=== PATIENT | female | born 1975 | race African-American/Black ===

== ENCOUNTER 2019-03-14 12:01 | Emergency (ER) | payer OTHER ==
[~2019-03-14] VITALS: Ht 175.3 cm; Wt 88.6 kg
[2019-03-14] MEDS ORDERED: INSU100V37 SQ (12:15)
[2019-03-14] MEDS ORDERED: INSULIN NOVOLOG SQ (12:15)
[2019-03-14] MEDS ORDERED: PREG75 PO (12:15)
[2019-03-14 12:16] LABS: GLUCOSE,POINT OF CARE 367 MG/DL (70-110)
[2019-03-14] MEDS ORDERED: INSNOV SQ (12:17)
[2019-03-14] MEDS ORDERED: KETOROLAC TROMETHAMINE 30 MG/ML VIAL IM ONE (12:30)
[2019-03-14 13:10] VITALS: BP 138/81
== END 2019-03-14 13:24 | disposition home or self-care (01) ==
LOC: EMS 12:02
DX: S16.1XXA Strain of muscle, fascia and tendon at neck level, initial encounter (principal); E11.9 Type 2 diabetes mellitus without complications; Z88.1 Allergy status to other antibiotic agents; Z88.8 Allergy status to other drugs, medicaments and biological substances; Z79.4 Long term (current) use of insulin; V49.9XXA Car occupant (driver) (passenger) injured in unspecified traffic accident, initial encounter; Y93.89 Activity, other specified; Y92.89 Other specified places as the place of occurrence of the external cause; Y99.8 Other external cause status
CPT/HCPCS: 82962; 96372; 99283; J1885

== ENCOUNTER 2019-06-13 10:16 | Inpatient (IN) | payer OTHER ==
[~2019-06-13] VITALS: Ht 175.3 cm; Wt 98.6 kg
[~2019-06-13 10:16] MED LIST: INSNOV SQ; INSU100V37 SQ; PREG75 PO
[2019-06-13] MEDS ORDERED: ANTIBIOTIC IVPB (10:24)
[2019-06-13 10:39] LABS: GLUCOSE,POINT OF CARE 276 MG/DL (70-110)
[2019-06-13] MEDS ORDERED: SODIUM CHLORIDE 0.9% 1,000 ML IV ONE ×3 (11:00→17:00)
[2019-06-13] MEDS ORDERED: FAMOTIDINE 10 MG/ML 2 ML VIAL IVP ONE (11:00)
[2019-06-13] MEDS ORDERED: ONDANSETRON HCL 4 MG/2 ML VIAL IVP ONE (11:00)
[2019-06-13 11:15] LABS: BASOPHILS % (AUTO) 1.9 % (0.0-2.0); EOSINOPHILS % (AUTO) 0 % (1.0-6.0); HEMATOCRIT 28.8 % (36-46); HEMOGLOBIN 9.1 g/dL (12.0-16.0); LYMPHOCYTES # (AUTO) 0.8 K/uL (1.0-4.8); LYMPHOCYTES % (AUTO) 8.3 % (22.0-44.0); MEAN CORPUSCULAR HEMOGLOBIN 25.3 pg (26.0-34.0); MEAN CORPUSCULAR HGB CONC 31.6 G/dL (31.0-37.0); MEAN CORPUSCULAR VOLUME 80 fL (80-100); MONOCYTES # (AUTO) 0.4 K/uL (0.1-1.0); MONOCYTES % (AUTO) 4.7 % (2.0-9.0); NEUTROPHILS # (AUTO) 7.9 K/uL (1.8-7.7); NEUTROPHILS % (AUTO) 85.1 % (40.0-70.0); PLATELET COUNT (AUTO) 400 K/uL (150-450); RED CELL DISTRIBUTION WIDTH 16.3 % (11.5-14.5)
[2019-06-13 11:24] LABS: ANION GAP 13 mmol/L (8-16); CALCIUM, TOTAL 7.9 mg/dL (8.8-10.5); CARBON DIOXIDE 28 mmol/L (22-29); CHLORIDE 99 mmol/L (98-107); GLOMERULAR FILTR. RATE CALC 33 mL/min (>60); GLUCOSE,RANDOM 291 mg/dL (70-110); POTASSIUM 3.2 mmol/L (3.5-5.1); SODIUM SERUM 140 mmol/L (136-145); UREA NITROGEN, BLOOD 13 mg/dL (7-18)
[2019-06-13 11:35] LABS: ALANINE AMINOTRANSFERASE 14 U/L (12-78); ALBUMIN 2.9 g/dL (3.4-5.0); ALKALINE PHOSPHATASE 142 U/L (46-116); ASPARTATE AMINOTRANSFERASE 9 U/L (15-37); BILIRUBIN,TOTAL 0.3 mg/dL (0.1-1.0); HCG,QUANTITATIVE < 1 mIU/mL (0-6); LIPASE 25 U/L (73-393); TOTAL PROTEIN, SERUM 7.7 g/dL (6.4-8.2)
[2019-06-13 12:29] LABS: APPEARANCE,URINE CLEAR (CLEAR); BILIRUBIN,URINE NEGATIVE (NEGATIVE); GLUCOSE, URINE (UA) >=1000 mg/dL (NEGATIVE); KETONES,URINE 40 mg/dL (NEGATIVE); LEUKOCYTE ESTERASE ,URINE NEGATIVE (NEGATIVE); NITRATE,URINE NEGATIVE (NEGATIVE); OCCULT BLOOD,URINE TRACE (NEGATIVE); PROTEIN,URINE POS 1+ (NEGATIVE); UROBILINOGEN,URINE 0.2 mg/dL (<=1.0)
[2019-06-13 12:35] LABS: BACTERIA,URINE None Seen /HPF (None Seen); RBC,URINE 0-2 /HPF (0-2); SQUAMOUS EPITHELIAL CELL,UR Few /LPF (None Seen); YEAST,URINE Many /HPF (None Seen)
[2019-06-13 12:55] LABS: ABG A-A DIFF O2 40.9 mmHg (10-20.0); ABG BASE EXCESS 0.9 mmol/L (-2.0-3.0); ABG CARBOXYHEMOGLOBIN 0.7 % (0.0-1.5); ABG HCO3 25.2 mmol/L (22.0-26.0); ABG METHEMOGLOBIN 0.3 % (0.0-1.5); ABG OXYGEN SATURATION 91.9 % (95.0-98.0); ABG PCO2 39 mmHg (35-45); ABG TOTAL HEMOGLOBIN 9.3 G/dL (12.0-18.0); PO2, ARTERIAL BG 62.4 mmHg (88.0-96.0); SOURCE, BLOOD GAS ARTERIAL; TEMPERATURE, FAHRENHEIT, BG 98.6 FAHREN (96.0-98.6)
[2019-06-13 12:57] LABS: SITE, BLOOD GAS RT RADIAL
[2019-06-13] MEDS ORDERED: DiphenhydrAMINE HCL 50 MG/ML VIAL IVP ONE (13:30)
[2019-06-13] MEDS ORDERED: METOCLOPRAMIDE HCL 5 MG/ML 2 ML VIAL IVP ONE (13:30)
[2019-06-13] MEDS ORDERED: ACETAMINOPHEN 325 MG TABLET PO PRN (14:30)
[2019-06-13] MEDS ORDERED: 0.9% SODIUM CHLORIDE 10 ML SYRINGE IVP PRN (14:30)
[2019-06-13] MEDS ORDERED: ONDANSETRON HCL 4 MG/2 ML VIAL IVP PRN (14:30)
[2019-06-13 14:40] LABS: AMPHET/METH SCREEN,URINE NEGATIVE (NEGATIVE); BARBITURATE SCREEN, URINE NEGATIVE (NEGATIVE); BENZODIAZEPINES SCREEN,URINE NEGATIVE (NEGATIVE); CANNABINOID SCREEN,URINE POSITIVE (NEGATIVE); COCAINE SCREEN,URINE NEGATIVE (NEGATIVE); METHADONE SCREEN, URINE NEGATIVE (NEGATIVE); OPIATE SCREEN,URINE NEGATIVE (NEGATIVE); PHENCYCLIDINE SCREEN,URINE NEGATIVE (NEGATIVE)
[2019-06-13] MEDS: POTASSIUM CHL 10 MEQ/WATER 50 ML IV SCH ×2 (14:56→15:38)
[2019-06-13] MEDS ORDERED: BISACODYL 10 MG RECTAL RECTAL SUPPOSITORY PR PRN (17:00)
[2019-06-13] MEDS ORDERED: MAGNESIUM HYDROXIDE SUSPENSION 30 ML UDCUP PO PRN (17:00)
[2019-06-13] MEDS ORDERED: LORazepam 2 MG/ML VIAL IM PRN (17:00)
[2019-06-13] MEDS ORDERED: ZOLPIDEM TARTRATE 5 MG TABLET PO PRN (17:00)
[2019-06-13] MEDS: CefTRIAXone SODIUM 2 GM in DEXTROSE 5%-WATER 50 ML IV SCH (17:17)
[2019-06-13] MEDS: ONDANSETRON HCL 4 MG/2 ML VIAL IVP PRN (17:46)
[2019-06-13] MEDS: MetroNIDAZOLE 250 MG/NACL 50 ML IV SCH (18:01)
[2019-06-13] MEDS ORDERED: DEXTROSE 50%-WATER 25 GM/50 ML SYRINGE IVP PRN (18:45)
[2019-06-13 18:50] LABS: GLUCOSE,POINT OF CARE 231 MG/DL (70-110)
[2019-06-13] MEDS: DOCUSATE SODIUM 100 MG CAPSULE PO SCH (20:08)
[2019-06-13] MEDS: METOCLOPRAMIDE HCL 5 MG/ML 2 ML VIAL IVP SCH (20:08)
[2019-06-13] MEDS: CloNIDine HCL 0.1 MG TABLET PO PRN (20:45)
[2019-06-13 21:39] VITALS: BP 151/92
[2019-06-13 23:12] VITALS: BP 136/82
[2019-06-13] MEDS: HEPARIN SODIUM,PORCINE 5,000 UNITS/ML VIAL SQ SCH (23:42)
[2019-06-13] MEDS: INSULIN LISPRO 100 UNITS/ML SQ PRN (23:42)
[2019-06-14] MEDS: MetroNIDAZOLE 250 MG/NACL 50 ML IV SCH ×3 (02:17→18:14)
[2019-06-14 03:08] LABS: GLUCOMETER DEV NAME(LOC) 4E.2; GLUCOSE,POINT OF CARE 252 MG/DL (70-110)
[2019-06-14] MEDS: ONDANSETRON HCL 4 MG/2 ML VIAL IVP PRN ×2 (04:56→23:53)
[2019-06-14] MEDS ORDERED: KETOROLAC TROMETHAMINE 15 MG/ML VIAL IVP ONE (06:00)
[2019-06-14 06:10] VITALS: BP 174/111
[2019-06-14 06:36] LABS: BASOPHILS % (AUTO) 0.5 % (0.0-2.0); EOSINOPHILS % (AUTO) 2.4 % (1.0-6.0); HEMATOCRIT 24.7 % (36-46); HEMOGLOBIN 7.9 g/dL (12.0-16.0); LYMPHOCYTES # (AUTO) 1.4 K/uL (1.0-4.8); LYMPHOCYTES % (AUTO) 19.8 % (22.0-44.0); MEAN CORPUSCULAR HEMOGLOBIN 25.6 pg (26.0-34.0); MEAN CORPUSCULAR HGB CONC 31.9 G/dL (31.0-37.0); MEAN CORPUSCULAR VOLUME 80 fL (80-100); MONOCYTES # (AUTO) 0.6 K/uL (0.1-1.0); MONOCYTES % (AUTO) 8.8 % (2.0-9.0); NEUTROPHILS # (AUTO) 4.8 K/uL (1.8-7.7); NEUTROPHILS % (AUTO) 68.5 % (40.0-70.0); PLATELET COUNT (AUTO) 341 K/uL (150-450); RED BLOOD CELL COUNT(AUTO) 3.08 MIL/uL (4.00-5.20); RED CELL DISTRIBUTION WIDTH 16.6 % (11.5-14.5)
[2019-06-14] MEDS: INSULIN LISPRO 100 UNITS/ML SQ PRN ×3 (06:37→20:26)
[2019-06-14 06:39] LABS: CREATININE 1.97 mg/dL (0.60-1.30); POTASSIUM 3.1 mmol/L (3.5-5.1)
[2019-06-14 07:03] LABS: HEMOGLOBIN A1C 12.3 % (4.5-6.2)
[2019-06-14] MEDS: METOCLOPRAMIDE HCL 5 MG/ML 2 ML VIAL IVP SCH ×3 (07:52→20:25)
[2019-06-14] MEDS: CloNIDine HCL 0.1 MG TABLET PO PRN (07:52)
[2019-06-14] MEDS: PREGABALIN 75 MG CAPSULE PO SCH (07:52)
[2019-06-14] MEDS: HEPARIN SODIUM,PORCINE 5,000 UNITS/ML VIAL SQ SCH ×3 (07:52→23:53)
[2019-06-14] MEDS: DOCUSATE SODIUM 100 MG CAPSULE PO SCH ×2 (07:53→20:24)
[2019-06-14] MEDS: PANTOPRAZOLE SODIUM 40 MG DR TABLET PO SCH (07:53)
[2019-06-14 08:04] VITALS: BP 162/107
[2019-06-14 11:42] VITALS: BP 142/79
[2019-06-14 16:16] VITALS: BP 128/86
[2019-06-14] MEDS: CefTRIAXone SODIUM 2 GM in DEXTROSE 5%-WATER 50 ML IV SCH (17:10)
[2019-06-14 17:11] LABS: GLUCOMETER DEV NAME(LOC) 6N.2; GLUCOSE,POINT OF CARE 125 MG/DL (70-110)
[2019-06-14 17:51] LABS: GLUCOMETER DEV NAME(LOC) 4E.2; GLUCOSE,POINT OF CARE 201 MG/DL (70-110)
[2019-06-14 17:51] LABS: GLUCOMETER DEV NAME(LOC) 4E.2; GLUCOSE,POINT OF CARE 199 MG/DL (70-110)
[2019-06-14 20:25] VITALS: BP 145/86
[2019-06-14] MEDS: INSULIN GLARGINE,HUM.REC.ANLOG 100 UNITS/ML SQ SCH (20:25)
[2019-06-15 00:34] VITALS: BP 160/109
[2019-06-15] MEDS: CloNIDine HCL 0.1 MG TABLET PO PRN ×3 (00:37→15:59)
[2019-06-15] MEDS ORDERED: POTASSIUM CHLORIDE 20 MEQ ER TABLET PO ONE ×2 (01:45→13:00)
[2019-06-15] MEDS: MetroNIDAZOLE 250 MG/NACL 50 ML IV SCH ×3 (01:50→17:26)
[2019-06-15 05:37] LABS: EOSINOPHILS % (AUTO) 4.2 % (1.0-6.0); HEMATOCRIT 25.3 % (36-46); HEMOGLOBIN 7.9 g/dL (12.0-16.0); LYMPHOCYTES # (AUTO) 1.3 K/uL (1.0-4.8); LYMPHOCYTES % (AUTO) 22.2 % (22.0-44.0); MEAN CORPUSCULAR HEMOGLOBIN 25.3 pg (26.0-34.0); MEAN CORPUSCULAR HGB CONC 31.4 G/dL (31.0-37.0); MEAN CORPUSCULAR VOLUME 81 fL (80-100); MONOCYTES # (AUTO) 0.5 K/uL (0.1-1.0); MONOCYTES % (AUTO) 9.2 % (2.0-9.0); NEUTROPHILS # (AUTO) 3.6 K/uL (1.8-7.7); NEUTROPHILS % (AUTO) 63.4 % (40.0-70.0); PLATELET COUNT (AUTO) 329 K/uL (150-450); RED BLOOD CELL COUNT(AUTO) 3.14 MIL/uL (4.00-5.20); RED CELL DISTRIBUTION WIDTH 16.5 % (11.5-14.5)
[2019-06-15 05:58] VITALS: BP 155/88
[2019-06-15 07:50] VITALS: BP 170/95
[2019-06-15 07:50] LABS: GLUCOMETER DEV NAME(LOC) 4E.2; GLUCOSE,POINT OF CARE 128 MG/DL (70-110)
[2019-06-15 07:50] LABS: GLUCOMETER DEV NAME(LOC) 4E.2; GLUCOSE,POINT OF CARE 167 MG/DL (70-110)
[2019-06-15] MEDS: PREGABALIN 75 MG CAPSULE PO SCH (08:04)
[2019-06-15] MEDS: METOCLOPRAMIDE HCL 5 MG/ML 2 ML VIAL IVP SCH ×3 (08:04→20:59)
[2019-06-15] MEDS: PANTOPRAZOLE SODIUM 40 MG DR TABLET PO SCH (08:04)
[2019-06-15] MEDS: DOCUSATE SODIUM 100 MG CAPSULE PO SCH ×2 (08:04→20:59)
[2019-06-15] MEDS: ONDANSETRON HCL 4 MG/2 ML VIAL IVP PRN (08:05)
[2019-06-15] MEDS: HEPARIN SODIUM,PORCINE 5,000 UNITS/ML VIAL SQ SCH ×2 (08:05→15:16)
[2019-06-15] MEDS: INSULIN GLARGINE,HUM.REC.ANLOG 100 UNITS/ML SQ SCH ×2 (08:18→21:02)
[2019-06-15 11:20] VITALS: BP 143/88
[2019-06-15 11:46] LABS: GLUCOMETER DEV NAME(LOC) 6N.2; GLUCOSE,POINT OF CARE 140 MG/DL (70-110)
[2019-06-15 15:20] VITALS: BP 157/100
[2019-06-15] MEDS: CefTRIAXone SODIUM 2 GM in DEXTROSE 5%-WATER 50 ML IV SCH (16:44)
[2019-06-15 17:26] LABS: GLUCOMETER DEV NAME(LOC) 4E.2; GLUCOSE,POINT OF CARE 158 MG/DL (70-110)
[2019-06-15] MEDS: INSULIN LISPRO 100 UNITS/ML SQ PRN (17:27)
[2019-06-15 21:13] VITALS: BP 132/91
[2019-06-16] MEDS: HEPARIN SODIUM,PORCINE 5,000 UNITS/ML VIAL SQ SCH ×3 (00:03→17:14)
[2019-06-16 00:41] VITALS: BP 148/96
[2019-06-16] MEDS: MetroNIDAZOLE 250 MG/NACL 50 ML IV SCH ×3 (02:14→18:10)
[2019-06-16] MEDS: ACETAMINOPHEN 325 MG TABLET PO PRN (04:06)
[2019-06-16 04:07] VITALS: BP 136/83
[2019-06-16 06:02] LABS: GLUCOMETER DEV NAME(LOC) 4E.2; GLUCOSE,POINT OF CARE 108 MG/DL (70-110)
[2019-06-16 06:02] LABS: GLUCOMETER DEV NAME(LOC) 4E.2; GLUCOSE,POINT OF CARE 118 MG/DL (70-110)
[2019-06-16 06:23] LABS: GLUCOMETER DEV NAME(LOC) 4E.2; GLUCOSE,POINT OF CARE 121 MG/DL (70-110)
[2019-06-16 07:01] LABS: BASOPHILS % (AUTO) 2.6 % (0.0-2.0); HEMATOCRIT 26.3 % (36-46); HEMOGLOBIN 8.4 g/dL (12.0-16.0); LYMPHOCYTES # (AUTO) 1.3 K/uL (1.0-4.8); MEAN CORPUSCULAR HEMOGLOBIN 25.4 pg (26.0-34.0); MEAN CORPUSCULAR HGB CONC 31.8 G/dL (31.0-37.0); MEAN CORPUSCULAR VOLUME 80 fL (80-100); MONOCYTES # (AUTO) 0.6 K/uL (0.1-1.0); MONOCYTES % (AUTO) 10.8 % (2.0-9.0); NEUTROPHILS # (AUTO) 2.7 K/uL (1.8-7.7); NEUTROPHILS % (AUTO) 52.6 % (40.0-70.0); PLATELET COUNT (AUTO) 328 K/uL (150-450); RED CELL DISTRIBUTION WIDTH 16.3 % (11.5-14.5)
[2019-06-16] MEDS: PANTOPRAZOLE SODIUM 40 MG DR TABLET PO SCH (07:53)
[2019-06-16] MEDS: PREGABALIN 75 MG CAPSULE PO SCH (07:54)
[2019-06-16] MEDS: DOCUSATE SODIUM 100 MG CAPSULE PO SCH ×2 (07:54→20:56)
[2019-06-16] MEDS: METOCLOPRAMIDE HCL 5 MG/ML 2 ML VIAL IVP SCH ×3 (07:56→20:56)
[2019-06-16 09:04] VITALS: BP 162/104
[2019-06-16] MEDS: CloNIDine HCL 0.1 MG TABLET PO PRN (09:11)
[2019-06-16] MEDS: INSULIN GLARGINE,HUM.REC.ANLOG 100 UNITS/ML SQ SCH ×2 (09:14→21:27)
[2019-06-16 10:30] LABS: GLUCOMETER DEV NAME(LOC) 4E.2; GLUCOSE,POINT OF CARE 128 MG/DL (70-110)
[2019-06-16 11:10] VITALS: BP 149/103
[2019-06-16 12:06] LABS: GLUCOMETER DEV NAME(LOC) 6N.2; GLUCOSE,POINT OF CARE 150 MG/DL (70-110)
[2019-06-16] MEDS: INSULIN LISPRO 100 UNITS/ML SQ PRN ×2 (12:10→21:28)
[2019-06-16] MEDS: ONDANSETRON HCL 4 MG/2 ML VIAL IVP PRN (12:11)
[2019-06-16] MEDS: METOPROLOL TARTRATE 25 MG TABLET PO SCH ×2 (13:19→20:56)
[2019-06-16 15:10] VITALS: BP 151/101
[2019-06-16] MEDS: CefTRIAXone SODIUM 2 GM in DEXTROSE 5%-WATER 50 ML IV SCH (17:15)
[2019-06-16 18:18] LABS: GLUCOMETER DEV NAME(LOC) 6N.2; GLUCOSE,POINT OF CARE 140 MG/DL (70-110)
[2019-06-16 20:28] VITALS: BP 148/89
[2019-06-17] VITALS (7 sets, daily range): BP systolic 120–156; BP diastolic 79–96
[2019-06-17] MEDS: HEPARIN SODIUM,PORCINE 5,000 UNITS/ML VIAL SQ SCH ×3 (00:02→16:17)
[2019-06-17] MEDS: MetroNIDAZOLE 250 MG/NACL 50 ML IV SCH ×3 (02:00→17:34)
[2019-06-17 06:03] LABS: BASOPHILS % (AUTO) 0.4 % (0.0-2.0); EOSINOPHILS % (AUTO) 9.3 % (1.0-6.0); HEMATOCRIT 26.8 % (36-46); HEMOGLOBIN 8.6 g/dL (12.0-16.0); LYMPHOCYTES # (AUTO) 1.2 K/uL (1.0-4.8); LYMPHOCYTES % (AUTO) 23.3 % (22.0-44.0); MEAN CORPUSCULAR HEMOGLOBIN 25.5 pg (26.0-34.0); MEAN CORPUSCULAR VOLUME 80 fL (80-100); MONOCYTES # (AUTO) 0.7 K/uL (0.1-1.0); MONOCYTES % (AUTO) 12.7 % (2.0-9.0); NEUTROPHILS # (AUTO) 2.9 K/uL (1.8-7.7); NEUTROPHILS % (AUTO) 54.3 % (40.0-70.0); PLATELET COUNT (AUTO) 336 K/uL (150-450); RED BLOOD CELL COUNT(AUTO) 3.36 MIL/uL (4.00-5.20); RED CELL DISTRIBUTION WIDTH 16.4 % (11.5-14.5)
[2019-06-17 06:11] LABS: CREATININE 1.74 mg/dL (0.60-1.30)
[2019-06-17 06:12] LABS: CALCIUM, TOTAL 6.9 mg/dL (8.8-10.5)
[2019-06-17 06:14] LABS: POTASSIUM 2.9 mmol/L (3.5-5.1)
[2019-06-17] MEDS ORDERED: POTASSIUM CHLORIDE 20 MEQ ER TABLET PO ONE (06:45)
[2019-06-17] MEDS: POTASSIUM CHL 10 MEQ/WATER 50 ML IV SCH ×2 (06:54→08:41)
[2019-06-17 07:36] LABS: GLUCOMETER DEV NAME(LOC) 4E.2; GLUCOSE,POINT OF CARE 220 MG/DL (70-110)
[2019-06-17 07:36] LABS: GLUCOMETER DEV NAME(LOC) 4E.2; GLUCOSE,POINT OF CARE 115 MG/DL (70-110)
[2019-06-17] MEDS: PREGABALIN 75 MG CAPSULE PO SCH (08:41)
[2019-06-17] MEDS: METOPROLOL TARTRATE 25 MG TABLET PO SCH ×2 (08:41→21:00)
[2019-06-17] MEDS: PANTOPRAZOLE SODIUM 40 MG DR TABLET PO SCH (08:41)
[2019-06-17] MEDS: METOCLOPRAMIDE HCL 5 MG/ML 2 ML VIAL IVP SCH ×3 (08:41→21:00)
[2019-06-17] MEDS: DOCUSATE SODIUM 100 MG CAPSULE PO SCH ×2 (09:00→21:00)
[2019-06-17] MEDS: INSULIN GLARGINE,HUM.REC.ANLOG 100 UNITS/ML SQ SCH ×2 (10:11→21:00)
[2019-06-17 11:57] LABS: GLUCOMETER DEV NAME(LOC) 6N.2; GLUCOSE,POINT OF CARE 175 MG/DL (70-110)
[2019-06-17] MEDS: INSULIN LISPRO 100 UNITS/ML SQ PRN ×2 (12:13→17:44)
[2019-06-17] MEDS: CefTRIAXone SODIUM 2 GM in DEXTROSE 5%-WATER 50 ML IV SCH (16:26)
[2019-06-17 20:02] LABS: GLUCOMETER DEV NAME(LOC) 6N.2; GLUCOSE,POINT OF CARE 161 MG/DL (70-110)
[2019-06-18] MEDS: MetroNIDAZOLE 250 MG/NACL 50 ML IV SCH ×3 (02:34→16:53)
[2019-06-18 05:00] VITALS: BP 132/78
[2019-06-18] MEDS ORDERED: SODIUM CHLORIDE 0.9% 1,000 ML IV ONE ×2 (05:26→06:50)
[2019-06-18 06:29] LABS: BASOPHILS % (AUTO) 4.3 % (0.0-2.0); EOSINOPHILS % (AUTO) 10.4 % (1.0-6.0); HEMATOCRIT 26.7 % (36-46); HEMOGLOBIN 8.5 g/dL (12.0-16.0); LYMPHOCYTES # (AUTO) 1.4 K/uL (1.0-4.8); LYMPHOCYTES % (AUTO) 26.2 % (22.0-44.0); MEAN CORPUSCULAR HEMOGLOBIN 25.4 pg (26.0-34.0); MEAN CORPUSCULAR HGB CONC 31.8 G/dL (31.0-37.0); MEAN CORPUSCULAR VOLUME 80 fL (80-100); MONOCYTES # (AUTO) 0.7 K/uL (0.1-1.0); MONOCYTES % (AUTO) 13.1 % (2.0-9.0); NEUTROPHILS # (AUTO) 2.4 K/uL (1.8-7.7); PLATELET COUNT (AUTO) 343 K/uL (150-450); RED BLOOD CELL COUNT(AUTO) 3.34 MIL/uL (4.00-5.20); RED CELL DISTRIBUTION WIDTH 17.2 % (11.5-14.5)
[2019-06-18 06:29] LABS: GLUCOMETER DEV NAME(LOC) 4E.2; GLUCOSE,POINT OF CARE 147 MG/DL (70-110)
[2019-06-18 06:41] LABS: CREATININE 1.78 mg/dL (0.60-1.30); POTASSIUM 3.3 mmol/L (3.5-5.1)
[2019-06-18] MEDS ORDERED: SODIUM CL IRRIG SOLN BAG 3,000 ML IRRIG ONE (06:49)
[2019-06-18] MEDS ORDERED: BUPIVACAINE HCL/PF 0.5% 30 ML VIAL ONE (06:49)
[2019-06-18] MEDS ORDERED: LIDOCAINE/PF 1% 30 ML VIAL ONE (06:49)
[2019-06-18] MEDS ORDERED: BACITRACIN 50,000 UNITS/VIAL ONE (06:50)
[2019-06-18] MEDS ORDERED: FentaNYL CITRATE-PF 100 MCG/2 ML VIAL IVP PRN (07:45)
[2019-06-18] MEDS ORDERED: MEPERIDINE-PF 25 MG/ML VIAL IVP PRN (07:45)
[2019-06-18] MEDS ORDERED: HYDROmorphone 2 MG/ML SYRINGE IVP PRN (07:45)
[2019-06-18 07:58] LABS: GLUCOMETER DEV NAME(LOC) 6N.2; GLUCOSE,POINT OF CARE 143 MG/DL (70-110)
[2019-06-18] MEDS: OXYGEN THERAPY IH SCH ×2 (08:00→20:00)
[2019-06-18] MEDS: HEPARIN SODIUM,PORCINE 5,000 UNITS/ML VIAL SQ SCH ×4 (08:00→23:38)
[2019-06-18 09:42] VITALS: BP 158/104
[2019-06-18] MEDS ORDERED: POTASSIUM CHLORIDE 20 MEQ ER TABLET PO PRN (09:45)
[2019-06-18] MEDS ORDERED: POTASSIUM CHL 10 MEQ/WATER 50 ML IV PRN (09:45)
[2019-06-18] MEDS ORDERED: MAGNESIUM SULFATE 2 GM/WATER 50 ML IV PRN (09:45)
[2019-06-18] MEDS ORDERED: MAGNESIUM SULFATE 4 GM/WATER 100 ML IV PRN (09:45)
[2019-06-18] MEDS: PANTOPRAZOLE SODIUM 40 MG DR TABLET PO SCH (09:57)
[2019-06-18] MEDS: PREGABALIN 75 MG CAPSULE PO SCH (09:57)
[2019-06-18] MEDS: DOCUSATE SODIUM 100 MG CAPSULE PO SCH ×3 (09:57→20:42)
[2019-06-18] MEDS: METOPROLOL TARTRATE 25 MG TABLET PO SCH ×2 (09:58→20:35)
[2019-06-18] MEDS: METOCLOPRAMIDE HCL 5 MG/ML 2 ML VIAL IVP SCH ×3 (10:01→20:34)
[2019-06-18] MEDS: INSULIN GLARGINE,HUM.REC.ANLOG 100 UNITS/ML SQ SCH ×2 (10:03→21:51)
[2019-06-18 10:09] LABS: GLUCOMETER DEV NAME(LOC) 6N.2; GLUCOSE,POINT OF CARE 138 MG/DL (70-110)
[2019-06-18 10:20] LABS: ALBUMIN 2.5 g/dL (3.4-5.0)
[2019-06-18 11:57] VITALS: BP 141/87
[2019-06-18] MEDS ORDERED: MIDAZOLAM HCL 2 MG/2 ML VIAL IVP ONE (12:00)
[2019-06-18] MEDS ORDERED: PROPOFOL 1% 20 ML VIAL IVP ONE (12:00)
[2019-06-18] MEDS ORDERED: FentaNYL CITRATE-PF 100 MCG/2 ML VIAL IVP ONE (12:00)
[2019-06-18] MEDS: INSULIN LISPRO 100 UNITS/ML SQ PRN ×2 (12:11→21:52)
[2019-06-18 12:13] LABS: GLUCOMETER DEV NAME(LOC) 4E.2; GLUCOSE,POINT OF CARE 166 MG/DL (70-110)
[2019-06-18 15:56] VITALS: BP 139/92
[2019-06-18] MEDS: CefTRIAXone SODIUM 2 GM in DEXTROSE 5%-WATER 50 ML IV SCH (16:14)
[2019-06-18] MEDS ORDERED: SODIUM CHLORIDE 0.9% 500 ML IV ONE (16:45)
[2019-06-18 17:54] LABS: GLUCOMETER DEV NAME(LOC) 4E.2; GLUCOSE,POINT OF CARE 138 MG/DL (70-110)
[2019-06-18 19:15] VITALS: BP_SYST 133; BP_SYST 140; BP_DIAS 59; BP_DIAS 88
[2019-06-19 00:08] VITALS: BP 131/88
[2019-06-19 00:13] LABS: GLUCOMETER DEV NAME(LOC) 6N.2; GLUCOSE,POINT OF CARE 207 MG/DL (70-110)
[2019-06-19] MEDS ORDERED: SODIUM CHLORIDE 0.9% 500 ML IV ONE (01:42)
[2019-06-19] MEDS: MetroNIDAZOLE 250 MG/NACL 50 ML IV SCH ×3 (01:51→17:26)
[2019-06-19 05:30] VITALS: BP 156/106
[2019-06-19 07:19] LABS: BASOPHILS % (AUTO) 0.4 % (0.0-2.0); EOSINOPHILS % (AUTO) 10.5 % (1.0-6.0); HEMATOCRIT 26.9 % (36-46); HEMOGLOBIN 8.5 g/dL (12.0-16.0); LYMPHOCYTES # (AUTO) 1.3 K/uL (1.0-4.8); LYMPHOCYTES % (AUTO) 24.1 % (22.0-44.0); MEAN CORPUSCULAR HEMOGLOBIN 25.5 pg (26.0-34.0); MEAN CORPUSCULAR HGB CONC 31.6 G/dL (31.0-37.0); MEAN CORPUSCULAR VOLUME 81 fL (80-100); MONOCYTES # (AUTO) 0.7 K/uL (0.1-1.0); MONOCYTES % (AUTO) 13.7 % (2.0-9.0); NEUTROPHILS # (AUTO) 2.8 K/uL (1.8-7.7); NEUTROPHILS % (AUTO) 51.3 % (40.0-70.0); PLATELET COUNT (AUTO) 353 K/uL (150-450); RED BLOOD CELL COUNT(AUTO) 3.34 MIL/uL (4.00-5.20); RED CELL DISTRIBUTION WIDTH 17.2 % (11.5-14.5)
[2019-06-19 07:29] LABS: CALCIUM, TOTAL 7.7 mg/dL (8.8-10.5); CREATININE 1.77 mg/dL (0.60-1.30); MAGNESIUM 1.6 mg/dL (1.80-2.40); POTASSIUM 4.2 mmol/L (3.5-5.1)
[2019-06-19 07:37] VITALS: BP 152/96
[2019-06-19 07:45] LABS: GLUCOMETER DEV NAME(LOC) 6N.2; GLUCOSE,POINT OF CARE 116 MG/DL (70-110)
[2019-06-19] MEDS: METOPROLOL TARTRATE 25 MG TABLET PO SCH ×2 (07:52→20:56)
[2019-06-19] MEDS: PANTOPRAZOLE SODIUM 40 MG DR TABLET PO SCH (07:52)
[2019-06-19] MEDS: PREGABALIN 75 MG CAPSULE PO SCH (07:52)
[2019-06-19] MEDS: METOCLOPRAMIDE HCL 5 MG/ML 2 ML VIAL IVP SCH ×3 (07:53→20:56)
[2019-06-19] MEDS: DOCUSATE SODIUM 100 MG CAPSULE PO SCH ×2 (07:53→20:56)
[2019-06-19] MEDS: HEPARIN SODIUM,PORCINE 5,000 UNITS/ML VIAL SQ SCH ×3 (07:53→23:56)
[2019-06-19] MEDS: OXYGEN THERAPY IH SCH ×2 (08:00→20:00)
[2019-06-19] MEDS: INSULIN GLARGINE,HUM.REC.ANLOG 100 UNITS/ML SQ SCH ×2 (09:35→20:58)
[2019-06-19] MEDS: MAGNESIUM OXIDE 400 MG TABLET PO PRN ×3 (10:54→17:48)
[2019-06-19 11:24] VITALS: BP 154/94
[2019-06-19] MEDS: INSULIN LISPRO 100 UNITS/ML SQ PRN ×3 (11:38→20:57)
[2019-06-19 12:51] LABS: GLUCOMETER DEV NAME(LOC) 6N.2; GLUCOSE,POINT OF CARE 171 MG/DL (70-110)
[2019-06-19 13:55] LABS: GLUCOMETER DEV NAME(LOC) 4E.2; GLUCOSE,POINT OF CARE 165 MG/DL (70-110)
[2019-06-19] MEDS: CefTRIAXone SODIUM 2 GM in DEXTROSE 5%-WATER 50 ML IV SCH (15:26)
[2019-06-19 15:59] VITALS: BP 134/98
[2019-06-19 19:10] LABS: GLUCOMETER DEV NAME(LOC) 4E.2; GLUCOSE,POINT OF CARE 177 MG/DL (70-110)
[2019-06-19 20:55] VITALS: BP 147/90
[2019-06-19 21:46] LABS: GLUCOMETER DEV NAME(LOC) 4E.2; GLUCOSE,POINT OF CARE 196 MG/DL (70-110)
[2019-06-20 01:08] VITALS: BP 140/95
[2019-06-20] MEDS: MetroNIDAZOLE 250 MG/NACL 50 ML IV SCH ×3 (01:15→17:27)
[2019-06-20 05:58] VITALS: BP 161/99
[2019-06-20] MEDS: CloNIDine HCL 0.1 MG TABLET PO PRN ×2 (06:21→20:30)
[2019-06-20] MEDS: INSULIN LISPRO 100 UNITS/ML SQ PRN ×4 (06:22→20:31)
[2019-06-20] MEDS: OXYGEN THERAPY IH SCH (08:00)
[2019-06-20 08:02] LABS: BASOPHILS % (AUTO) 2.2 % (0.0-2.0); HEMATOCRIT 29.1 % (36-46); HEMOGLOBIN 9.1 g/dL (12.0-16.0); LYMPHOCYTES # (AUTO) 1.8 K/uL (1.0-4.8); LYMPHOCYTES % (AUTO) 30.2 % (22.0-44.0); MEAN CORPUSCULAR HEMOGLOBIN 25.3 pg (26.0-34.0); MEAN CORPUSCULAR HGB CONC 31.2 G/dL (31.0-37.0); MEAN CORPUSCULAR VOLUME 81 fL (80-100); MONOCYTES # (AUTO) 0.7 K/uL (0.1-1.0); NEUTROPHILS # (AUTO) 2.8 K/uL (1.8-7.7); NEUTROPHILS % (AUTO) 46.6 % (40.0-70.0); PLATELET COUNT (AUTO) 408 K/uL (150-450); RED CELL DISTRIBUTION WIDTH 17.7 % (11.5-14.5)
[2019-06-20 08:12] LABS: CREATININE 1.69 mg/dL (0.60-1.30); MAGNESIUM 1.5 mg/dL (1.80-2.40); POTASSIUM 3.8 mmol/L (3.5-5.1)
[2019-06-20] MEDS: PANTOPRAZOLE SODIUM 40 MG DR TABLET PO SCH (08:13)
[2019-06-20] MEDS: DOCUSATE SODIUM 100 MG CAPSULE PO SCH ×2 (08:13→20:30)
[2019-06-20] MEDS: PREGABALIN 75 MG CAPSULE PO SCH (08:13)
[2019-06-20] MEDS: METOPROLOL TARTRATE 25 MG TABLET PO SCH ×2 (08:13→20:30)
[2019-06-20 08:14] VITALS: BP 148/96
[2019-06-20] MEDS: HEPARIN SODIUM,PORCINE 5,000 UNITS/ML VIAL SQ SCH ×3 (08:15→23:57)
[2019-06-20] MEDS: METOCLOPRAMIDE HCL 5 MG/ML 2 ML VIAL IVP SCH ×3 (08:15→20:30)
[2019-06-20] MEDS: INSULIN GLARGINE,HUM.REC.ANLOG 100 UNITS/ML SQ SCH ×2 (08:18→20:31)
[2019-06-20] MEDS: MAGNESIUM OXIDE 400 MG TABLET PO PRN ×3 (08:26→17:26)
[2019-06-20 09:45] LABS: GLUCOMETER DEV NAME(LOC) 6N.2; GLUCOSE,POINT OF CARE 167 MG/DL (70-110)
[2019-06-20 11:55] VITALS: BP 153/101
[2019-06-20 15:48] VITALS: BP 141/95
[2019-06-20] MEDS: CefTRIAXone SODIUM 2 GM in DEXTROSE 5%-WATER 50 ML IV SCH (15:51)
[2019-06-20 16:17] LABS: GLUCOMETER DEV NAME(LOC) 6N.2; GLUCOSE,POINT OF CARE 166 MG/DL (70-110)
[2019-06-20 17:31] LABS: GLUCOMETER DEV NAME(LOC) 6N.2; GLUCOSE,POINT OF CARE 152 MG/DL (70-110)
[2019-06-20 20:15] VITALS: BP 162/103
[2019-06-21] VITALS (7 sets, daily range): BP systolic 122–158; BP diastolic 83–97
[2019-06-21] MEDS: MetroNIDAZOLE 250 MG/NACL 50 ML IV SCH ×3 (01:57→18:00)
[2019-06-21] MEDS: INSULIN LISPRO 100 UNITS/ML SQ PRN ×4 (06:03→20:31)
[2019-06-21 06:27] LABS: CALCIUM, TOTAL 7.8 mg/dL (8.8-10.5); CREATININE 1.54 mg/dL (0.60-1.30); MAGNESIUM 1.3 mg/dL (1.80-2.40); POTASSIUM 4.3 mmol/L (3.5-5.1)
[2019-06-21 06:46] LABS: BASOPHILS % (AUTO) 2.4 % (0.0-2.0); EOSINOPHILS % (AUTO) 11.1 % (1.0-6.0); HEMATOCRIT 25.3 % (36-46); HEMOGLOBIN 8.3 g/dL (12.0-16.0); LYMPHOCYTES # (AUTO) 1.7 K/uL (1.0-4.8); LYMPHOCYTES % (AUTO) 28.8 % (22.0-44.0); MEAN CORPUSCULAR HEMOGLOBIN 26.4 pg (26.0-34.0); MEAN CORPUSCULAR HGB CONC 32.8 G/dL (31.0-37.0); MEAN CORPUSCULAR VOLUME 81 fL (80-100); MONOCYTES # (AUTO) 0.9 K/uL (0.1-1.0); MONOCYTES % (AUTO) 14.4 % (2.0-9.0); NEUTROPHILS # (AUTO) 2.5 K/uL (1.8-7.7); NEUTROPHILS % (AUTO) 43.3 % (40.0-70.0); PLATELET COUNT (AUTO) 329 K/uL (150-450); RED BLOOD CELL COUNT(AUTO) 3.14 MIL/uL (4.00-5.20); RED CELL DISTRIBUTION WIDTH 17.2 % (11.5-14.5)
[2019-06-21] MEDS: METOPROLOL TARTRATE 25 MG TABLET PO SCH ×2 (08:41→20:33)
[2019-06-21] MEDS: CloNIDine HCL 0.1 MG TABLET PO PRN (08:41)
[2019-06-21] MEDS: DOCUSATE SODIUM 100 MG CAPSULE PO SCH ×2 (08:41→20:33)
[2019-06-21] MEDS: PANTOPRAZOLE SODIUM 40 MG DR TABLET PO SCH (08:41)
[2019-06-21] MEDS: HEPARIN SODIUM,PORCINE 5,000 UNITS/ML VIAL SQ SCH ×3 (08:41→23:54)
[2019-06-21] MEDS: PREGABALIN 75 MG CAPSULE PO SCH (08:41)
[2019-06-21] MEDS: INSULIN GLARGINE,HUM.REC.ANLOG 100 UNITS/ML SQ SCH ×2 (08:43→20:32)
[2019-06-21 10:44] LABS: GLUCOMETER DEV NAME(LOC) 6N.2; GLUCOSE,POINT OF CARE 196 MG/DL (70-110)
[2019-06-21] MEDS ORDERED: LEVOFLOXACIN 250 MG TABLET PO SCH (13:15)
[2019-06-21] MEDS: METOCLOPRAMIDE HCL 5 MG/ML 2 ML VIAL IVP SCH ×4 (14:40→20:35)
[2019-06-21 15:25] LABS: GLUCOMETER DEV NAME(LOC) 4E.2; GLUCOSE,POINT OF CARE 176 MG/DL (70-110)
[2019-06-21 15:25] LABS: GLUCOMETER DEV NAME(LOC) 4E.2; GLUCOSE,POINT OF CARE 177 MG/DL (70-110)
[2019-06-21] MEDS: DAPTOMYCIN 600 MG in SODIUM CHLORIDE 0.9% 50 ML IV SCH (16:45)
[2019-06-21 17:07] LABS: GLUCOMETER DEV NAME(LOC) 4E.2; GLUCOSE,POINT OF CARE 202 MG/DL (70-110)
[2019-06-21] MEDS ORDERED: SODIUM CHLORIDE 0.9% 500 ML IV ONE (19:42)
[2019-06-22] MEDS: MetroNIDAZOLE 250 MG/NACL 50 ML IV SCH ×2 (01:52→09:09)
[2019-06-22 04:23] VITALS: BP 150/99
[2019-06-22 05:29] LABS: GLUCOMETER DEV NAME(LOC) 6N.2; GLUCOSE,POINT OF CARE 220 MG/DL (70-110)
[2019-06-22] MEDS: INSULIN LISPRO 100 UNITS/ML SQ PRN ×2 (05:41→12:02)
[2019-06-22 05:58] LABS: BASOPHILS % (AUTO) 2.1 % (0.0-2.0); EOSINOPHILS % (AUTO) 11.2 % (1.0-6.0); HEMATOCRIT 26.3 % (36-46); HEMOGLOBIN 8.3 g/dL (12.0-16.0); LYMPHOCYTES # (AUTO) 1.7 K/uL (1.0-4.8); LYMPHOCYTES % (AUTO) 29.8 % (22.0-44.0); MEAN CORPUSCULAR HEMOGLOBIN 25.5 pg (26.0-34.0); MEAN CORPUSCULAR HGB CONC 31.6 G/dL (31.0-37.0); MEAN CORPUSCULAR VOLUME 81 fL (80-100); MONOCYTES # (AUTO) 0.8 K/uL (0.1-1.0); MONOCYTES % (AUTO) 13.6 % (2.0-9.0); NEUTROPHILS # (AUTO) 2.4 K/uL (1.8-7.7); NEUTROPHILS % (AUTO) 43.3 % (40.0-70.0); PLATELET COUNT (AUTO) 359 K/uL (150-450); RED BLOOD CELL COUNT(AUTO) 3.25 MIL/uL (4.00-5.20); RED CELL DISTRIBUTION WIDTH 17.3 % (11.5-14.5)
[2019-06-22 06:05] LABS: CALCIUM, TOTAL 8.1 mg/dL (8.8-10.5); CREATININE 1.57 mg/dL (0.60-1.30); MAGNESIUM 1.6 mg/dL (1.80-2.40); POTASSIUM 4.2 mmol/L (3.5-5.1)
[2019-06-22] MEDS: ACETAMINOPHEN 325 MG TABLET PO PRN (06:29)
[2019-06-22 07:44] VITALS: BP 148/103
[2019-06-22] MEDS: PANTOPRAZOLE SODIUM 40 MG DR TABLET PO SCH (08:51)
[2019-06-22] MEDS: MAGNESIUM OXIDE 400 MG TABLET PO PRN ×2 (08:51→15:33)
[2019-06-22] MEDS: PREGABALIN 75 MG CAPSULE PO SCH (08:51)
[2019-06-22] MEDS: METOPROLOL TARTRATE 25 MG TABLET PO SCH (08:54)
[2019-06-22] MEDS: INSULIN GLARGINE,HUM.REC.ANLOG 100 UNITS/ML SQ SCH (08:54)
[2019-06-22] MEDS: HEPARIN SODIUM,PORCINE 5,000 UNITS/ML VIAL SQ SCH ×2 (08:55→15:33)
[2019-06-22] MEDS: DOCUSATE SODIUM 100 MG CAPSULE PO SCH (08:55)
[2019-06-22] MEDS: METOCLOPRAMIDE HCL 5 MG/ML 2 ML VIAL IVP SCH ×2 (08:55→15:33)
[2019-06-22 11:44] VITALS: BP 160/104
[2019-06-22 12:11] LABS: GLUCOMETER DEV NAME(LOC) 4E.2; GLUCOSE,POINT OF CARE 159 MG/DL (70-110)
[2019-06-22] MEDS: CloNIDine HCL 0.1 MG TABLET PO PRN (12:12)
[2019-06-22 14:03] LABS: GLUCOMETER DEV NAME(LOC) 6N.2; GLUCOSE,POINT OF CARE 145 MG/DL (70-110)
[2019-06-22] MEDS ORDERED: METO25 PO (14:30)
[2019-06-22] MEDS ORDERED: DAPT500V2 IV (14:36)
[2019-06-22] MEDS ORDERED: LEVO250 PO (14:37)
[2019-06-22] MEDS ORDERED: L. A1TAB10 PO (14:47)
[2019-06-22 15:22] VITALS: BP 151/98
[2019-06-22] MEDS: DAPTOMYCIN 600 MG in SODIUM CHLORIDE 0.9% 50 ML IV SCH (15:33)
== END 2019-06-22 16:15 | disposition home health service (06) | DRG 256 ==
LOC: EMS 10:17 → 4E 20:45
PROVIDERS: ADMIT Internal Medicine; ATTEND Internal Medicine
PROC: 0Y6Q0Z0 Detachment at Left 1st Toe, Complete, Open Approach (ICD-10-PCS; principal; 2019-06-18 07:30)
DX: E11.52 Type 2 diabetes mellitus with diabetic peripheral angiopathy with gangrene (principal); N18.4 Chronic kidney disease, stage 4 (severe); M86.8X7 Other osteomyelitis, ankle and foot; E44.0 Moderate protein-calorie malnutrition; A08.4 Viral intestinal infection, unspecified; E11.65 Type 2 diabetes mellitus with hyperglycemia; E11.22 Type 2 diabetes mellitus with diabetic chronic kidney disease; E11.40 Type 2 diabetes mellitus with diabetic neuropathy, unspecified; E11.69 Type 2 diabetes mellitus with other specified complication; E87.6 Hypokalemia; Z90.710 Acquired absence of both cervix and uterus; Z90.49 Acquired absence of other specified parts of digestive tract; Z89.412 Acquired absence of left great toe; E11.43 Type 2 diabetes mellitus with diabetic autonomic (poly)neuropathy; K31.84 Gastroparesis; Z88.8 Allergy status to other drugs, medicaments and biological substances
CPT/HCPCS: 36600; 74176; 82805; 83036; 83735; 84132; 87070; 87081; 87101; 87205; 88305; 88307; 88311; 93005; 99291; G0378; J0696; J0878; J1200; J1644; J1815; J1885; J2250; J2405; J2704; J2765; J3010; J3475; J3480; J3490; J7030; J7040; J7050; J7060

== ENCOUNTER 2019-06-29 05:41 | Emergency (ER) | payer OTHER ==
[~2019-06-29] VITALS: Ht 175.3 cm; Wt 98.6 kg
[~2019-06-29 05:41] MED LIST changes: +DAPT500V2 IV; +L. A1TAB10 PO; +LEVO250 PO; +METO25 PO
[2019-06-29] MEDS ORDERED: PANT20TA12 PO (05:49)
[2019-06-29] MEDS ORDERED: CLON1PAT4 PO (05:49)
[2019-06-29 05:57] LABS: GLUCOSE,POINT OF CARE 442 MG/DL (70-110)
[2019-06-29] MEDS ORDERED: METOCLOPRAMIDE HCL 5 MG/ML 2 ML VIAL IVP ONE (06:15)
[2019-06-29] MEDS ORDERED: SODIUM CHLORIDE 0.9% 1,000 ML IV ONE ×2 (06:15→06:30)
[2019-06-29 06:21] LABS: BASOPHILS % (AUTO) 0.6 % (0.0-2.0); EOSINOPHILS % (AUTO) 0.2 % (1.0-6.0); HEMATOCRIT 34.1 % (36-46); HEMOGLOBIN 10.5 g/dL (12.0-16.0); LYMPHOCYTES # (AUTO) 0.7 K/uL (1.0-4.8); LYMPHOCYTES % (AUTO) 5.8 % (22.0-44.0); MEAN CORPUSCULAR HGB CONC 30.9 G/dL (31.0-37.0); MEAN CORPUSCULAR VOLUME 81 fL (80-100); MONOCYTES # (AUTO) 0.6 K/uL (0.1-1.0); MONOCYTES % (AUTO) 4.8 % (2.0-9.0); NEUTROPHILS # (AUTO) 11.3 K/uL (1.8-7.7); PLATELET COUNT (AUTO) 445 K/uL (150-450); RED BLOOD CELL COUNT(AUTO) 4.22 MIL/uL (4.00-5.20); RED CELL DISTRIBUTION WIDTH 16.9 % (11.5-14.5)
[2019-06-29 06:22] LABS: NEUTROPHILS % (AUTO) 88.6 % (40.0-70.0)
[2019-06-29 06:42] LABS: ALBUMIN 3.6 g/dL (3.4-5.0); BILIRUBIN,TOTAL 0.5 mg/dL (0.1-1.0); CALCIUM, TOTAL 9.2 mg/dL (8.8-10.5); CREATININE 1.86 mg/dL (0.60-1.30); POTASSIUM 3.6 mmol/L (3.5-5.1); TOTAL PROTEIN, SERUM 8.9 g/dL (6.4-8.2)
[2019-06-29 06:50] LABS: BILIRUBIN,URINE NEGATIVE (NEGATIVE); GLUCOSE, URINE (UA) >=1000 mg/dL (NEGATIVE); KETONES,URINE 15 mg/dL (NEGATIVE); NITRATE,URINE NEGATIVE (NEGATIVE); PH,URINE 6.5 (5.0-8.0); PROTEIN,URINE POS 1+ (NEGATIVE); UROBILINOGEN,URINE 0.2 mg/dL (<=1.0)
[2019-06-29 06:58] LABS: OCCULT BLOOD,URINE TRACE (NEGATIVE)
[2019-06-29 06:59] LABS: APPEARANCE,URINE HAZY (CLEAR); LEUKOCYTE ESTERASE ,URINE TRACE (NEGATIVE)
[2019-06-29 07:00] LABS: BACTERIA,URINE None Seen /HPF (None Seen); RBC,URINE 0-2 /HPF (0-2); SQUAMOUS EPITHELIAL CELL,UR Moderate /LPF (None Seen); WBC,URINE 0-2 /HPF (0-5); YEAST,URINE Moderate /HPF (None Seen)
[2019-06-29] MEDS ORDERED: METOPROLOL TARTRATE 25 MG TABLET PO ONE (08:00)
[2019-06-29] MEDS ORDERED: INSULIN REGULAR, HUMAN 100 UNITS/ML IVP ONE (08:00)
[2019-06-29 09:34] LABS: GLUCOSE,POINT OF CARE 427 MG/DL (70-110)
[2019-06-29 10:54] LABS: GLUCOSE,POINT OF CARE 366 MG/DL (70-110)
[2019-06-29 11:02] VITALS: BP 158/109
== END 2019-06-29 11:20 | disposition home or self-care (01) ==
LOC: EMS 05:41
DX: I12.9 Hypertensive chronic kidney disease with stage 1 through stage 4 chronic kidney disease, or unspecified chronic kidney disease (principal); E11.22 Type 2 diabetes mellitus with diabetic chronic kidney disease; N18.9 Chronic kidney disease, unspecified; E11.65 Type 2 diabetes mellitus with hyperglycemia; E11.43 Type 2 diabetes mellitus with diabetic autonomic (poly)neuropathy; Z90.710 Acquired absence of both cervix and uterus; Z88.5 Allergy status to narcotic agent; Z79.4 Long term (current) use of insulin; Z88.8 Allergy status to other drugs, medicaments and biological substances
CPT/HCPCS: 36415; 80053; 81001; 82962; 83690; 84702; 85025; 96361; 96374; 96375; 99283; J1815; J2765; J7030

== ENCOUNTER 2019-06-30 16:07 | Emergency (ER) | payer OTHER ==
[~2019-06-30] VITALS: Ht 175.3 cm; Wt 92.7 kg
[~2019-06-30 16:07] MED LIST changes: +CLON1PAT4 PO; +PANT20TA12 PO
[2019-06-30 17:26] LABS: BASOPHILS % (AUTO) 1.2 % (0.0-2.0); EOSINOPHILS % (AUTO) 0.2 % (1.0-6.0); HEMATOCRIT 33.4 % (36-46); HEMOGLOBIN 10.3 g/dL (12.0-16.0); LYMPHOCYTES # (AUTO) 1.4 K/uL (1.0-4.8); LYMPHOCYTES % (AUTO) 12.7 % (22.0-44.0); MEAN CORPUSCULAR HGB CONC 30.9 G/dL (31.0-37.0); MEAN CORPUSCULAR VOLUME 81 fL (80-100); MONOCYTES # (AUTO) 0.8 K/uL (0.1-1.0); MONOCYTES % (AUTO) 6.8 % (2.0-9.0); NEUTROPHILS # (AUTO) 8.9 K/uL (1.8-7.7); NEUTROPHILS % (AUTO) 79.1 % (40.0-70.0); PLATELET COUNT (AUTO) 420 K/uL (150-450); RED BLOOD CELL COUNT(AUTO) 4.14 MIL/uL (4.00-5.20)
[2019-06-30 17:34] LABS: CALCIUM, TOTAL 9.1 mg/dL (8.8-10.5); CREATININE 1.81 mg/dL (0.60-1.30); POTASSIUM 3.1 mmol/L (3.5-5.1)
[2019-06-30 17:40] LABS: ALBUMIN 3.6 g/dL (3.4-5.0); BILIRUBIN,TOTAL 0.5 mg/dL (0.1-1.0); TOTAL PROTEIN, SERUM 8.5 g/dL (6.4-8.2)
[2019-06-30 17:45] LABS: GLUCOSE,POINT OF CARE 346 MG/DL (70-110)
[2019-06-30] MEDS ORDERED: SODIUM CHLORIDE 0.9% 1,000 ML IV ONE (17:45)
[2019-06-30] MEDS ORDERED: METOCLOPRAMIDE HCL 5 MG/ML 2 ML VIAL IVP ONE (17:45)
[2019-06-30 18:25] LABS: APPEARANCE,URINE CLOUDY (CLEAR); BILIRUBIN,URINE NEGATIVE (NEGATIVE); GLUCOSE, URINE (UA) >=1000 mg/dL (NEGATIVE); KETONES,URINE NEGATIVE (NEGATIVE); LEUKOCYTE ESTERASE ,URINE NEGATIVE (NEGATIVE); NITRATE,URINE NEGATIVE (NEGATIVE); OCCULT BLOOD,URINE TRACE (NEGATIVE); PROTEIN,URINE POS 1+ (NEGATIVE); UROBILINOGEN,URINE 0.2 mg/dL (<=1.0)
[2019-06-30 18:28] LABS: AMPHET/METH SCREEN,URINE NEGATIVE (NEGATIVE); BARBITURATE SCREEN, URINE NEGATIVE (NEGATIVE); BENZODIAZEPINES SCREEN,URINE NEGATIVE (NEGATIVE); CANNABINOID SCREEN,URINE NEGATIVE (NEGATIVE); COCAINE SCREEN,URINE NEGATIVE (NEGATIVE); METHADONE SCREEN, URINE NEGATIVE (NEGATIVE); OPIATE SCREEN,URINE NEGATIVE (NEGATIVE)
[2019-06-30] MEDS ORDERED: INSULIN REGULAR, HUMAN 100 UNITS/ML IVP ONE ×2 (18:30→20:15)
[2019-06-30 18:32] LABS: PHENCYCLIDINE SCREEN,URINE NEGATIVE (NEGATIVE)
[2019-06-30 18:38] LABS: BACTERIA,URINE Few /HPF (None Seen); RBC,URINE 0-2 /HPF (0-2)
[2019-06-30 18:39] LABS: SQUAMOUS EPITHELIAL CELL,UR Few /LPF (None Seen)
[2019-06-30 18:40] LABS: YEAST,URINE Many /HPF (None Seen)
[2019-06-30] MEDS ORDERED: POTASSIUM CHLORIDE 20 MEQ ER TABLET PO ONE (19:15)
[2019-06-30 19:29] LABS: GLUCOSE,POINT OF CARE 308 MG/DL (70-110)
[2019-06-30 20:23] LABS: GLUCOSE,POINT OF CARE 312 MG/DL (70-110)
[2019-06-30] MEDS ORDERED: ACETAMINOPHEN 500 MG TABLET PO ONE (20:30)
[2019-06-30 21:15] VITALS: BP 164/99
[2019-06-30 21:22] LABS: GLUCOSE,POINT OF CARE 288 MG/DL (70-110)
== END 2019-06-30 21:37 | disposition home or self-care (01) ==
LOC: EMS 16:08
DX: K52.9 Noninfective gastroenteritis and colitis, unspecified (principal); E11.9 Type 2 diabetes mellitus without complications; Z88.5 Allergy status to narcotic agent; Z88.8 Allergy status to other drugs, medicaments and biological substances; Z79.4 Long term (current) use of insulin; Z79.899 Other long term (current) drug therapy
CPT/HCPCS: 36415; 74176; 80053; 80307; 81001; 82948; 82962; 83690; 85025; 96361; 96374; 96375; 96376; 99284; G0480; J1815; J2765; J7030

== ENCOUNTER 2019-07-24 16:37 | Inpatient (IN) | payer OTHER ==
[~2019-07-24] VITALS: Ht 162.6 cm; Wt 82.7 kg
[~2019-07-24 16:37] MED LIST changes: -LEVO250 PO
[2019-07-24 17:07] LABS: GLUCOSE,POINT OF CARE 374 MG/DL (70-110)
[2019-07-24 17:13] LABS: BASOPHILS % (AUTO) 1.6 % (0.0-2.0); EOSINOPHILS % (AUTO) 1.1 % (1.0-6.0); HEMATOCRIT 31.3 % (36-46); HEMOGLOBIN 9.9 g/dL (12.0-16.0); LYMPHOCYTES # (AUTO) 1.2 K/uL (1.0-4.8); LYMPHOCYTES % (AUTO) 17.4 % (22.0-44.0); MEAN CORPUSCULAR HEMOGLOBIN 24.7 pg (26.0-34.0); MEAN CORPUSCULAR HGB CONC 31.6 G/dL (31.0-37.0); MEAN CORPUSCULAR VOLUME 78 fL (80-100); MONOCYTES # (AUTO) 0.5 K/uL (0.1-1.0); MONOCYTES % (AUTO) 7.2 % (2.0-9.0); NEUTROPHILS # (AUTO) 5.2 K/uL (1.8-7.7); NEUTROPHILS % (AUTO) 72.7 % (40.0-70.0); PLATELET COUNT (AUTO) 433 K/uL (150-450)
[2019-07-24 17:30] LABS: ALANINE AMINOTRANSFERASE 12 U/L (12-78); ALBUMIN 2.7 g/dL (3.4-5.0); ALKALINE PHOSPHATASE 174 U/L (46-116); ANION GAP 7 mmol/L (8-16); ASPARTATE AMINOTRANSFERASE 11 U/L (15-37); BILIRUBIN,TOTAL 0.3 mg/dL (0.1-1.0); CALCIUM, TOTAL 8.7 mg/dL (8.8-10.5); CARBON DIOXIDE 32 mmol/L (22-29); CHLORIDE 92 mmol/L (98-107); CREATININE 1.45 mg/dL (0.60-1.30); GLOMERULAR FILTR. RATE CALC 48 mL/min (>60); GLUCOSE,RANDOM 372 mg/dL (70-110); LIPASE 25 U/L (73-393); SODIUM SERUM 131 mmol/L (136-145); TOTAL PROTEIN, SERUM 7.6 g/dL (6.4-8.2); UREA NITROGEN, BLOOD 9 mg/dL (7-18)
[2019-07-24 17:34] LABS: POTASSIUM 2.3 mmol/L (3.5-5.1)
[2019-07-24 18:11] LABS: HCG,QUANTITATIVE < 1 mIU/mL (0-6)
[2019-07-24] MEDS ORDERED: SODIUM CHLORIDE 0.9% 1,000 ML ONE (19:02)
[2019-07-24] MEDS: POTASSIUM CHL 10 MEQ/WATER 50 ML IV SCH ×3 (19:19→23:20)
[2019-07-24] MEDS ORDERED: ONDANSETRON HCL 4 MG/2 ML VIAL IVP PRN (19:45)
[2019-07-24] MEDS ORDERED: 0.9% SODIUM CHLORIDE 10 ML SYRINGE IVP PRN (19:45)
[2019-07-24] MEDS ORDERED: ACETAMINOPHEN 325 MG TABLET PO PRN (19:45)
[2019-07-24] MEDS ORDERED: METOCLOPRAMIDE HCL 5 MG/ML 2 ML VIAL IVP ONE (19:45)
[2019-07-24 20:50] LABS: APPEARANCE,URINE CLOUDY (CLEAR); BILIRUBIN,URINE NEGATIVE (NEGATIVE); GLUCOSE, URINE (UA) 500 mg/dL (NEGATIVE); KETONES,URINE NEGATIVE (NEGATIVE); LEUKOCYTE ESTERASE ,URINE LARGE (NEGATIVE); NITRATE,URINE NEGATIVE (NEGATIVE); OCCULT BLOOD,URINE NEGATIVE (NEGATIVE); PROTEIN,URINE POS 1+ (NEGATIVE); UROBILINOGEN,URINE 0.2 mg/dL (<=1.0)
[2019-07-24 21:01] LABS: BACTERIA,URINE Few /HPF (None Seen); RBC,URINE None Seen /HPF (0-2); YEAST,URINE Many /HPF (None Seen)
[2019-07-24 21:02] LABS: SQUAMOUS EPITHELIAL CELL,UR Moderate /LPF (None Seen)
[2019-07-25 00:14] VITALS: BP 163/93
[2019-07-25] MEDS ORDERED: DEXTROSE 50%-WATER 25 GM/50 ML SYRINGE IVP PRN (00:30)
[2019-07-25] MEDS ORDERED: HydrALAZINE HCL 20 MG/ML VIAL IVP PRN (00:30)
[2019-07-25] MEDS: POTASSIUM CHL 10 MEQ/WATER 50 ML IV SCH (01:02)
[2019-07-25] MEDS: METOCLOPRAMIDE HCL 5 MG/ML 2 ML VIAL IVP PRN ×3 (01:03→21:45)
[2019-07-25] MEDS: INSULIN LISPRO 100 UNITS/ML SQ PRN ×5 (01:05→21:47)
[2019-07-25] MEDS ORDERED: POTASSIUM CHL 10 MEQ/WATER 50 ML IV PRN (01:30)
[2019-07-25] MEDS ORDERED: MAGNESIUM SULFATE 4 GM/WATER 100 ML IV PRN (01:30)
[2019-07-25] MEDS ORDERED: SODIUM CHLORIDE 0.9% 250 ML IV ONE (02:21)
[2019-07-25] MEDS: MAGNESIUM SULFATE 2 GM/WATER 50 ML IV PRN (03:20)
[2019-07-25 06:02] VITALS: BP 132/76
[2019-07-25] MEDS: CloNIDine 0.2 MG/24 HOUR PATCH TD SCH (06:13)
[2019-07-25 06:44] LABS: GLUCOMETER DEV NAME(LOC) 5N.2; GLUCOSE,POINT OF CARE 199 MG/DL (70-110)
[2019-07-25 07:36] VITALS: BP 136/71
[2019-07-25] MEDS: LACTOBACILLUS ACIDOPHILUS/BULGARICUS TABLET PO SCH ×2 (08:32→20:23)
[2019-07-25] MEDS: PREGABALIN 75 MG CAPSULE PO SCH (08:32)
[2019-07-25] MEDS: METOPROLOL TARTRATE 25 MG TABLET PO SCH ×2 (08:32→20:23)
[2019-07-25 11:35] VITALS: BP 127/69
[2019-07-25 13:09] LABS: BASOPHILS % (AUTO) 0.6 % (0.0-2.0); HEMATOCRIT 29.8 % (36-46); HEMOGLOBIN 9.4 g/dL (12.0-16.0); LYMPHOCYTES # (AUTO) 1.9 K/uL (1.0-4.8); LYMPHOCYTES % (AUTO) 23.3 % (22.0-44.0); MEAN CORPUSCULAR HEMOGLOBIN 24.8 pg (26.0-34.0); MEAN CORPUSCULAR HGB CONC 31.6 G/dL (31.0-37.0); MEAN CORPUSCULAR VOLUME 79 fL (80-100); MONOCYTES # (AUTO) 0.7 K/uL (0.1-1.0); NEUTROPHILS # (AUTO) 5.3 K/uL (1.8-7.7); NEUTROPHILS % (AUTO) 65.1 % (40.0-70.0); PLATELET COUNT (AUTO) 402 K/uL (150-450); RED CELL DISTRIBUTION WIDTH 15.9 % (11.5-14.5)
[2019-07-25 13:20] LABS: ALBUMIN 2.6 g/dL (3.4-5.0); BILIRUBIN,TOTAL 0.2 mg/dL (0.1-1.0); CALCIUM, TOTAL 8.7 mg/dL (8.8-10.5); CREATININE 1.51 mg/dL (0.60-1.30); TOTAL PROTEIN, SERUM 6.9 g/dL (6.4-8.2)
[2019-07-25 13:25] LABS: POTASSIUM 2.4 mmol/L (3.5-5.1)
[2019-07-25] MEDS ORDERED: ONDANSETRON HCL 4 MG/2 ML VIAL IVP PRN (13:30)
[2019-07-25] MEDS ORDERED: IPRATROPIUM BROMIDE 0.5 MG/2.5 ML NEB SOLUTION NEB PRN (13:30)
[2019-07-25] MEDS ORDERED: HYDROCODONE/ACETAMINOPHEN 5-325 MG TABLET PO PRN (13:30)
[2019-07-25] MEDS ORDERED: MORPHINE SULFATE 2 MG/ML SYRINGE IVP PRN (13:30)
[2019-07-25] MEDS ORDERED: BISACODYL 10 MG RECTAL RECTAL SUPPOSITORY PR PRN (13:30)
[2019-07-25] MEDS ORDERED: ZOLPIDEM TARTRATE 5 MG TABLET PO PRN ×2 (13:30→21:00)
[2019-07-25] MEDS ORDERED: MAGNESIUM HYDROXIDE SUSPENSION 30 ML UDCUP PO PRN (13:30)
[2019-07-25] MEDS ORDERED: ALBUTEROL SULFATE 2.5 MG/0.5 ML NEB SOLUTION NEB PRN (13:30)
[2019-07-25] MEDS ORDERED: ACETAMINOPHEN 325 MG TABLET PO PRN (13:30)
[2019-07-25] MEDS: POTASSIUM CHLORIDE 20 MEQ ER TABLET PO PRN ×2 (13:47→21:45)
[2019-07-25 13:54] LABS: MAGNESIUM 1.9 mg/dL (1.80-2.40)
[2019-07-25 15:37] VITALS: BP 132/86
[2019-07-25] MEDS ORDERED: DAPTOMYCIN 500 MG/VIAL IV SCH (16:30)
[2019-07-25] MEDS ORDERED: FLUCONAZOLE 200 MG TABLET PO ONE (16:30)
[2019-07-25] MEDS: HEPARIN SODIUM,PORCINE 5,000 UNITS/ML VIAL SQ SCH (17:09)
[2019-07-25 19:33] VITALS: BP 116/69
[2019-07-25] MEDS: DOCUSATE SODIUM 100 MG CAPSULE PO SCH (20:23)
[2019-07-25] MEDS: DAPTOMYCIN 600 MG in SODIUM CHLORIDE 0.9% 50 ML IV SCH (20:23)
[2019-07-25] MEDS ORDERED: ZOLPIDEM TARTRATE 10 MG TABLET PO SCH (21:00)
[2019-07-26] VITALS (7 sets, daily range): BP systolic 101–144; BP diastolic 52–78
[2019-07-26] MEDS: HEPARIN SODIUM,PORCINE 5,000 UNITS/ML VIAL SQ SCH ×3 (00:08→18:15)
[2019-07-26 00:57] LABS: GLUCOMETER DEV NAME(LOC) 5N.2; GLUCOSE,POINT OF CARE 274 MG/DL (70-110)
[2019-07-26 00:57] LABS: GLUCOMETER DEV NAME(LOC) 5N.2; GLUCOSE,POINT OF CARE 323 MG/DL (70-110)
[2019-07-26 00:57] LABS: GLUCOMETER DEV NAME(LOC) 5N.2; GLUCOSE,POINT OF CARE 269 MG/DL (70-110)
[2019-07-26] MEDS: POTASSIUM CHLORIDE 20 MEQ ER TABLET PO PRN (03:36)
[2019-07-26] MEDS: CloNIDine 0.2 MG/24 HOUR PATCH TD SCH (05:47)
[2019-07-26] MEDS: INSULIN LISPRO 100 UNITS/ML SQ PRN ×4 (06:12→20:55)
[2019-07-26 06:16] LABS: MAGNESIUM 1.8 mg/dL (1.80-2.40); POTASSIUM 3.1 mmol/L (3.5-5.1)
[2019-07-26] MEDS: DOCUSATE SODIUM 100 MG CAPSULE PO SCH ×2 (08:33→20:47)
[2019-07-26] MEDS: LACTOBACILLUS ACIDOPHILUS/BULGARICUS TABLET PO SCH ×2 (08:34→20:47)
[2019-07-26] MEDS: METOPROLOL TARTRATE 25 MG TABLET PO SCH ×2 (08:35→20:47)
[2019-07-26] MEDS: PREGABALIN 75 MG CAPSULE PO SCH (08:35)
[2019-07-26] MEDS ORDERED: POTASSIUM CHLORIDE 20 MEQ ER TABLET PO ONE (09:00)
[2019-07-26] MEDS ORDERED: FLUCONAZOLE 200 MG TABLET PO SCH (09:00)
[2019-07-26] MEDS: LEVOFLOXACIN 250 MG TABLET PO SCH (18:15)
[2019-07-26] MEDS: DAPTOMYCIN 600 MG in SODIUM CHLORIDE 0.9% 50 ML IV SCH (18:16)
[2019-07-26] MEDS: MUPIROCIN CALCIUM 2% 22 GM OINTMENT NASAL SCH (20:47)
[2019-07-27 04:39] VITALS: BP 132/91
[2019-07-27 04:43] LABS: GLUCOMETER DEV NAME(LOC) 5N.2; GLUCOSE,POINT OF CARE 333 MG/DL (70-110)
[2019-07-27 04:43] LABS: GLUCOMETER DEV NAME(LOC) 5N.2; GLUCOSE,POINT OF CARE 280 MG/DL (70-110)
[2019-07-27 04:43] LABS: GLUCOMETER DEV NAME(LOC) 5N.2; GLUCOSE,POINT OF CARE 314 MG/DL (70-110)
[2019-07-27 04:43] LABS: GLUCOMETER DEV NAME(LOC) 5N.2; GLUCOSE,POINT OF CARE 371 MG/DL (70-110)
[2019-07-27] MEDS: METOCLOPRAMIDE HCL 5 MG/ML 2 ML VIAL IVP PRN (05:54)
[2019-07-27] MEDS: INSULIN LISPRO 100 UNITS/ML SQ PRN ×4 (05:56→20:26)
[2019-07-27] MEDS: CloNIDine 0.2 MG/24 HOUR PATCH TD SCH (06:30)
[2019-07-27 06:54] LABS: GLUCOMETER DEV NAME(LOC) 5N.2; GLUCOSE,POINT OF CARE 390 MG/DL (70-110)
[2019-07-27 07:47] VITALS: BP 127/83
[2019-07-27 08:04] LABS: CALCIUM, TOTAL 8.7 mg/dL (8.8-10.5); CREATININE 1.61 mg/dL (0.60-1.30)
[2019-07-27] MEDS: PREGABALIN 75 MG CAPSULE PO SCH (08:34)
[2019-07-27] MEDS: METOPROLOL TARTRATE 25 MG TABLET PO SCH ×2 (08:35→20:26)
[2019-07-27] MEDS: CHLORHEXIDINE GLUCONATE 4% 118 ML TOPICAL LIQUID TP SCH (08:35)
[2019-07-27] MEDS: MUPIROCIN CALCIUM 2% 22 GM OINTMENT NASAL SCH ×2 (08:35→20:28)
[2019-07-27] MEDS: DOCUSATE SODIUM 100 MG CAPSULE PO SCH ×2 (08:35→20:26)
[2019-07-27] MEDS: LACTOBACILLUS ACIDOPHILUS/BULGARICUS TABLET PO SCH ×2 (08:35→20:26)
[2019-07-27] MEDS: HEPARIN SODIUM,PORCINE 5,000 UNITS/ML VIAL SQ SCH ×4 (08:35→23:24)
[2019-07-27 10:03] LABS: MAGNESIUM 1.6 mg/dL (1.80-2.40)
[2019-07-27] MEDS: MAGNESIUM OXIDE 400 MG TABLET PO PRN ×3 (10:37→23:17)
[2019-07-27 10:56] VITALS: BP 149/89
[2019-07-27] MEDS: SODIUM CHLORIDE 0.9% 1,000 ML IV SCH (15:14)
[2019-07-27 16:01] VITALS: BP 121/82
[2019-07-27] MEDS: DAPTOMYCIN 600 MG in SODIUM CHLORIDE 0.9% 50 ML IV SCH (17:46)
[2019-07-27 19:32] VITALS: BP 129/84
[2019-07-27 20:24] LABS: GLUCOMETER DEV NAME(LOC) 5N.2; GLUCOSE,POINT OF CARE 329 MG/DL (70-110)
[2019-07-27 20:24] LABS: GLUCOMETER DEV NAME(LOC) 5N.2; GLUCOSE,POINT OF CARE 392 MG/DL (70-110)
[2019-07-27 23:09] VITALS: BP 133/89
[2019-07-28 03:11] LABS: GLUCOMETER DEV NAME(LOC) 5N.1; GLUCOSE,POINT OF CARE 350 MG/DL (70-110)
[2019-07-28] MEDS: SODIUM CHLORIDE 0.9% 1,000 ML IV SCH ×2 (06:18→17:02)
[2019-07-28] MEDS: CloNIDine 0.2 MG/24 HOUR PATCH TD SCH (06:19)
[2019-07-28 06:48] VITALS: BP 139/86
[2019-07-28] MEDS: INSULIN LISPRO 100 UNITS/ML SQ PRN ×3 (07:03→17:06)
[2019-07-28 07:25] VITALS: BP 137/93
[2019-07-28 08:01] LABS: BASOPHILS % (AUTO) 1.2 % (0.0-2.0); EOSINOPHILS % (AUTO) 8.3 % (1.0-6.0); HEMOGLOBIN 8.9 g/dL (12.0-16.0); LYMPHOCYTES # (AUTO) 2.1 K/uL (1.0-4.8); LYMPHOCYTES % (AUTO) 24.6 % (22.0-44.0); MEAN CORPUSCULAR HEMOGLOBIN 24.9 pg (26.0-34.0); MEAN CORPUSCULAR HGB CONC 30.8 G/dL (31.0-37.0); MEAN CORPUSCULAR VOLUME 81 fL (80-100); MONOCYTES # (AUTO) 0.6 K/uL (0.1-1.0); NEUTROPHILS % (AUTO) 58.9 % (40.0-70.0); PLATELET COUNT (AUTO) 394 K/uL (150-450); RED BLOOD CELL COUNT(AUTO) 3.59 MIL/uL (4.00-5.20); RED CELL DISTRIBUTION WIDTH 17.1 % (11.5-14.5)
[2019-07-28] MEDS ORDERED: INSULIN LISPRO 100 UNITS/ML SQ ONE (08:15)
[2019-07-28] MEDS: INSULIN GLARGINE,HUM.REC.ANLOG 100 UNITS/ML SQ SCH (08:20)
[2019-07-28] MEDS: HEPARIN SODIUM,PORCINE 5,000 UNITS/ML VIAL SQ SCH ×2 (08:21→16:56)
[2019-07-28] MEDS: MUPIROCIN CALCIUM 2% 22 GM OINTMENT NASAL SCH ×2 (08:22→21:13)
[2019-07-28] MEDS: LACTOBACILLUS ACIDOPHILUS/BULGARICUS TABLET PO SCH ×2 (08:22→21:10)
[2019-07-28] MEDS: LEVOFLOXACIN 250 MG TABLET PO SCH (08:22)
[2019-07-28] MEDS: DOCUSATE SODIUM 100 MG CAPSULE PO SCH ×2 (08:22→21:10)
[2019-07-28] MEDS: PREGABALIN 75 MG CAPSULE PO SCH (08:22)
[2019-07-28] MEDS: METOPROLOL TARTRATE 25 MG TABLET PO SCH ×2 (08:23→21:10)
[2019-07-28] MEDS: CHLORHEXIDINE GLUCONATE 4% 118 ML TOPICAL LIQUID TP SCH (08:23)
[2019-07-28 11:24] VITALS: BP 123/80
[2019-07-28] MEDS: MAGNESIUM SULFATE 2 GM/WATER 50 ML IV PRN (11:25)
[2019-07-28 14:59] LABS: GLUCOMETER DEV NAME(LOC) 5S.1; GLUCOSE,POINT OF CARE 432 MG/DL (70-110)
[2019-07-28 14:59] LABS: GLUCOMETER DEV NAME(LOC) 5S.1; GLUCOSE,POINT OF CARE 198 MG/DL (70-110)
[2019-07-28 14:59] LABS: GLUCOMETER DEV NAME(LOC) 5S.1; GLUCOSE,POINT OF CARE 438 MG/DL (70-110)
[2019-07-28 14:59] LABS: GLUCOMETER DEV NAME(LOC) 5S.1; GLUCOSE,POINT OF CARE 430 MG/DL (70-110)
[2019-07-28 15:52] VITALS: BP 130/94
[2019-07-28] MEDS: DAPTOMYCIN 600 MG in SODIUM CHLORIDE 0.9% 50 ML IV SCH (16:56)
[2019-07-28] MEDS ORDERED: DEXTROSE 50%-WATER 25 GM/50 ML SYRINGE IVP PRN (18:30)
[2019-07-28 19:32] VITALS: BP 141/59
[2019-07-28 23:12] VITALS: BP 129/74
[2019-07-29] MEDS: HEPARIN SODIUM,PORCINE 5,000 UNITS/ML VIAL SQ SCH ×3 (00:51→16:55)
[2019-07-29 04:18] VITALS: BP 127/81
[2019-07-29] MEDS: CloNIDine 0.2 MG/24 HOUR PATCH TD SCH (06:09)
[2019-07-29] MEDS: INSULIN LISPRO 100 UNITS/ML SQ PRN ×3 (06:11→17:26)
[2019-07-29] MEDS: SODIUM CHLORIDE 0.9% 1,000 ML IV SCH (06:13)
[2019-07-29 06:39] LABS: GLUCOMETER DEV NAME(LOC) 5N.1; GLUCOSE,POINT OF CARE 373 MG/DL (70-110)
[2019-07-29 06:39] LABS: GLUCOMETER DEV NAME(LOC) 5N.2; GLUCOSE,POINT OF CARE 389 MG/DL (70-110)
[2019-07-29 07:11] LABS: GLUCOMETER DEV NAME(LOC) 5S.1; GLUCOSE,POINT OF CARE 333 MG/DL (70-110)
[2019-07-29 07:24] VITALS: BP 138/69
[2019-07-29 07:45] LABS: BASOPHILS % (AUTO) 1.4 % (0.0-2.0); EOSINOPHILS % (AUTO) 9.6 % (1.0-6.0); HEMATOCRIT 28.7 % (36-46); HEMOGLOBIN 8.9 g/dL (12.0-16.0); LYMPHOCYTES # (AUTO) 1.6 K/uL (1.0-4.8); LYMPHOCYTES % (AUTO) 21.5 % (22.0-44.0); MEAN CORPUSCULAR HEMOGLOBIN 24.8 pg (26.0-34.0); MEAN CORPUSCULAR HGB CONC 31.1 G/dL (31.0-37.0); MEAN CORPUSCULAR VOLUME 80 fL (80-100); MONOCYTES # (AUTO) 0.3 K/uL (0.1-1.0); MONOCYTES % (AUTO) 4.7 % (2.0-9.0); NEUTROPHILS # (AUTO) 4.6 K/uL (1.8-7.7); NEUTROPHILS % (AUTO) 62.8 % (40.0-70.0); PLATELET COUNT (AUTO) 381 K/uL (150-450); RED BLOOD CELL COUNT(AUTO) 3.59 MIL/uL (4.00-5.20); RED CELL DISTRIBUTION WIDTH 17.1 % (11.5-14.5)
[2019-07-29 08:58] LABS: CALCIUM, TOTAL 8.7 mg/dL (8.8-10.5); CREATININE 1.51 mg/dL (0.60-1.30); MAGNESIUM 1.6 mg/dL (1.80-2.40); POTASSIUM 4.2 mmol/L (3.5-5.1)
[2019-07-29] MEDS: DOCUSATE SODIUM 100 MG CAPSULE PO SCH (09:00)
[2019-07-29] MEDS: METOPROLOL TARTRATE 25 MG TABLET PO SCH (09:18)
[2019-07-29] MEDS: LACTOBACILLUS ACIDOPHILUS/BULGARICUS TABLET PO SCH (09:19)
[2019-07-29] MEDS: MAGNESIUM OXIDE 400 MG TABLET PO PRN (09:19)
[2019-07-29] MEDS: PREGABALIN 75 MG CAPSULE PO SCH (09:19)
[2019-07-29] MEDS: CHLORHEXIDINE GLUCONATE 4% 118 ML TOPICAL LIQUID TP SCH (09:19)
[2019-07-29] MEDS: MUPIROCIN CALCIUM 2% 22 GM OINTMENT NASAL SCH (09:20)
[2019-07-29] MEDS: INSULIN GLARGINE,HUM.REC.ANLOG 100 UNITS/ML SQ SCH (09:23)
[2019-07-29 10:17] LABS: GLUCOMETER DEV NAME(LOC) 5N.1; GLUCOSE,POINT OF CARE 314 MG/DL (70-110)
[2019-07-29 11:16] VITALS: BP 123/96
[2019-07-29] MEDS ORDERED: MAGNESIUM SULFATE 4 GM/WATER 100 ML IV ONE (12:45)
[2019-07-29 15:02] VITALS: BP 135/83
[2019-07-29 16:58] LABS: GLUCOMETER DEV NAME(LOC) 5N.2; GLUCOSE,POINT OF CARE 393 MG/DL (70-110)
[2019-07-29] MEDS: DAPTOMYCIN 600 MG in SODIUM CHLORIDE 0.9% 50 ML IV SCH (17:37)
[2019-07-29] MEDS ORDERED: CHLO240L TP (18:03)
[2019-07-29] MEDS ORDERED: MUPI1OIN5 NASAL (18:10)
[2019-07-29] MEDS ORDERED: LEVO250 PO (18:14)
[2019-07-29] MEDS ORDERED: DAPT500V8 IV (18:16)
[2019-07-29] MEDS ORDERED: METO5TAB95 PO ×2 (18:54→18:55)
[2019-07-29 19:30] VITALS: BP 139/71
[2019-07-29 19:55] LABS: GLUCOMETER DEV NAME(LOC) 5N.2; GLUCOSE,POINT OF CARE 314 MG/DL (70-110)
[2019-07-29] MEDS ORDERED: INSULIN GLARGINE,HUM.REC.ANLOG 100 UNITS/ML SQ SCH (21:00)
== END 2019-07-29 20:00 | disposition home or self-care (01) | DRG 638 ==
LOC: EMS 16:42 → 5N 07-25 00:15
PROVIDERS: ADMIT Hospitalist; ATTEND Hospitalist
DX: E11.69 Type 2 diabetes mellitus with other specified complication (principal); E44.0 Moderate protein-calorie malnutrition; M86.8X7 Other osteomyelitis, ankle and foot; E87.1 Hypo-osmolality and hyponatremia; E87.6 Hypokalemia; E11.22 Type 2 diabetes mellitus with diabetic chronic kidney disease; N18.9 Chronic kidney disease, unspecified; B95.62 Methicillin resistant Staphylococcus aureus infection as the cause of diseases classified elsewhere; D64.9 Anemia, unspecified; Z82.49 Family history of ischemic heart disease and other diseases of the circulatory system; Z83.3 Family history of diabetes mellitus; Z90.710 Acquired absence of both cervix and uterus; Z88.8 Allergy status to other drugs, medicaments and biological substances; Z89.439 Acquired absence of unspecified foot; Z68.31 Body mass index [BMI] 31.0-31.9, adult
CPT/HCPCS: 73718; 83735; 84132; 87040; 87070; 87081; 87086; 87205; 93005; 93306; J0360; J0878; J1644; J1815; J2405; J2765; J3475; J3480; J7030; J7050

== ENCOUNTER 2019-08-21 04:23 | Emergency (ER) | payer OTHER ==
[~2019-08-21] VITALS: Ht 175.3 cm; Wt 84.1 kg
[~2019-08-21 04:23] MED LIST changes: +CHLO240L TP; +DAPT500V8 IV; +LEVO250T75 PO; +LISI-660 PO; +METO5TAB95 PO
[2019-08-21 04:55] LABS: GLUCOSE,POINT OF CARE 306 MG/DL (70-110)
[2019-08-21 05:00] LABS: APPEARANCE,URINE CLOUDY (CLEAR); BILIRUBIN,URINE NEGATIVE (NEGATIVE); GLUCOSE, URINE (UA) 500 mg/dL (NEGATIVE); KETONES,URINE 15 mg/dL (NEGATIVE); LEUKOCYTE ESTERASE ,URINE NEGATIVE (NEGATIVE); NITRATE,URINE NEGATIVE (NEGATIVE); OCCULT BLOOD,URINE NEGATIVE (NEGATIVE); PH,URINE 6.5 (5.0-8.0); PROTEIN,URINE POS 1+ (NEGATIVE); UROBILINOGEN,URINE 0.2 mg/dL (<=1.0)
[2019-08-21 05:13] LABS: BACTERIA,URINE None Seen /HPF (None Seen); RBC,URINE 0-2 /HPF (0-2); SQUAMOUS EPITHELIAL CELL,UR Few /LPF (None Seen); YEAST,URINE Many /HPF (None Seen)
[2019-08-21 05:15] LABS: BASOPHILS % (AUTO) 1.3 % (0.0-2.0); EOSINOPHILS % (AUTO) 0.6 % (1.0-6.0); HEMATOCRIT 35.5 % (36-46); HEMOGLOBIN 10.9 g/dL (12.0-16.0); LYMPHOCYTES # (AUTO) 1.6 K/uL (1.0-4.8); LYMPHOCYTES % (AUTO) 25.4 % (22.0-44.0); MEAN CORPUSCULAR HGB CONC 30.8 G/dL (31.0-37.0); MEAN CORPUSCULAR VOLUME 78 fL (80-100); MONOCYTES # (AUTO) 0.6 K/uL (0.1-1.0); MONOCYTES % (AUTO) 9.6 % (2.0-9.0); NEUTROPHILS % (AUTO) 63.1 % (40.0-70.0); PLATELET COUNT (AUTO) 373 K/uL (150-450); RED BLOOD CELL COUNT(AUTO) 4.55 MIL/uL (4.00-5.20); RED CELL DISTRIBUTION WIDTH 18.2 % (11.5-14.5)
[2019-08-21 05:25] LABS: ANION GAP 10 mmol/L (8-16); CALCIUM, TOTAL 8.7 mg/dL (8.8-10.5); CARBON DIOXIDE 31 mmol/L (22-29); CHLORIDE 93 mmol/L (98-107); CREATININE 1.36 mg/dL (0.60-1.30); GLOMERULAR FILTR. RATE CALC 52 mL/min (>60); GLUCOSE,RANDOM 343 mg/dL (70-110); POTASSIUM 3.5 mmol/L (3.5-5.1); SODIUM SERUM 134 mmol/L (136-145); UREA NITROGEN, BLOOD 12 mg/dL (7-18)
[2019-08-21 05:36] LABS: ALANINE AMINOTRANSFERASE 18 U/L (12-78); ALKALINE PHOSPHATASE 154 U/L (46-116); ASPARTATE AMINOTRANSFERASE 13 U/L (15-37); BILIRUBIN,TOTAL 0.4 mg/dL (0.1-1.0); HCG,QUANTITATIVE < 1 mIU/mL (0-6); LIPASE 40 U/L (73-393); TOTAL PROTEIN, SERUM 7.7 g/dL (6.4-8.2)
[2019-08-21] MEDS ORDERED: ONDANSETRON HCL 4 MG/2 ML VIAL IVP ONE (06:15)
[2019-08-21] MEDS ORDERED: KETOROLAC TROMETHAMINE 30 MG/ML VIAL IVP ONE (06:15)
[2019-08-21] MEDS ORDERED: SODIUM CHLORIDE 0.9% 1,000 ML IV ONE (06:15)
[2019-08-21 07:12] VITALS: BP 150/93
== END 2019-08-21 07:42 | disposition home or self-care (01) ==
LOC: EMS 04:25
DX: R10.13 Epigastric pain (principal); R11.2 Nausea with vomiting, unspecified; E11.9 Type 2 diabetes mellitus without complications; Z88.5 Allergy status to narcotic agent; Z88.8 Allergy status to other drugs, medicaments and biological substances; Z79.4 Long term (current) use of insulin
CPT/HCPCS: 36415; 74176; 80053; 81001; 82962; 83690; 84702; 85025; 96361; 96374; 96375; 99284; J1885; J2405

== ENCOUNTER 2019-08-24 10:38 | Inpatient (IN) | payer OTHER ==
[~2019-08-24] VITALS: Ht 175.3 cm; Wt 87.2 kg
[~2019-08-24 10:38] MED LIST changes: -CHLO240L TP; -CLON1PAT4 PO; -DAPT500V2 IV; -DAPT500V8 IV; -INSU100V37 SQ; -L. A1TAB10 PO; -LEVO250T75 PO; -LISI-660 PO; -PANT20TA12 PO; -PREG75 PO
[2019-08-24] MEDS ORDERED: CLON1PAT12 TD (11:18)
[2019-08-24] MEDS ORDERED: INSU100V SQ (11:18)
[2019-08-24 11:25] LABS: GLUCOSE,POINT OF CARE 407 MG/DL (70-110)
[2019-08-24] MEDS ORDERED: SODIUM CHLORIDE 0.9% 1,000 ML IV ONE (12:03)
[2019-08-24] MEDS ORDERED: ATOR20TA65 PO (12:11)
[2019-08-24] MEDS ORDERED: PREG75CA75 PO (12:11)
[2019-08-24] MEDS ORDERED: LISI10TA7 PO (12:11)
[2019-08-24] MEDS ORDERED: INSU200I4 SQ (12:11)
[2019-08-24] MEDS ORDERED: ONDANSETRON HCL 4 MG/2 ML VIAL IVP ONE (12:15)
[2019-08-24] MEDS ORDERED: INSULIN REGULAR, HUMAN 100 UNITS/ML IVP ONE (12:15)
[2019-08-24 12:52] LABS: BASOPHILS % (AUTO) 1.4 % (0.0-2.0); EOSINOPHILS % (AUTO) 1.5 % (1.0-6.0); HEMOGLOBIN 10.4 g/dL (12.0-16.0); LYMPHOCYTES # (AUTO) 1.6 K/uL (1.0-4.8); LYMPHOCYTES % (AUTO) 29.3 % (22.0-44.0); MEAN CORPUSCULAR HEMOGLOBIN 24.5 pg (26.0-34.0); MEAN CORPUSCULAR HGB CONC 31.5 G/dL (31.0-37.0); MEAN CORPUSCULAR VOLUME 78 fL (80-100); MONOCYTES # (AUTO) 0.6 K/uL (0.1-1.0); MONOCYTES % (AUTO) 10.2 % (2.0-9.0); NEUTROPHILS # (AUTO) 3.2 K/uL (1.8-7.7); NEUTROPHILS % (AUTO) 57.6 % (40.0-70.0); PLATELET COUNT (AUTO) 345 K/uL (150-450); RED BLOOD CELL COUNT(AUTO) 4.23 MIL/uL (4.00-5.20); RED CELL DISTRIBUTION WIDTH 17.6 % (11.5-14.5)
[2019-08-24 13:10] LABS: ALBUMIN 2.9 g/dL (3.4-5.0); BILIRUBIN,TOTAL 0.4 mg/dL (0.1-1.0); C-REACTIVE PROTEIN QUANT 0.53 mg/dL (0.00-0.30); CALCIUM, TOTAL 8.5 mg/dL (8.8-10.5); CREATININE 1.49 mg/dL (0.60-1.30); POTASSIUM 3.1 mmol/L (3.5-5.1); TOTAL PROTEIN, SERUM 7.3 g/dL (6.4-8.2)
[2019-08-24] MEDS ORDERED: VANCOMYCIN HCL 1 GM/D5% WATER 200 ML IV ONE (14:00)
[2019-08-24 14:05] LABS: ERYTHROCYTE SEDIMENTATION RATE 51 MM/HR (0-20)
[2019-08-24 14:28] LABS: GLUCOSE,POINT OF CARE 223 MG/DL (70-110)
[2019-08-24] MEDS ORDERED: DEXTROSE 50%-WATER 25 GM/50 ML SYRINGE IVP PRN (15:30)
[2019-08-24] MEDS ORDERED: MAGNESIUM HYDROXIDE SUSPENSION 30 ML UDCUP PO PRN (15:30)
[2019-08-24] MEDS ORDERED: BISACODYL 10 MG RECTAL RECTAL SUPPOSITORY PR PRN (15:30)
[2019-08-24] MEDS ORDERED: ZOLPIDEM TARTRATE 5 MG TABLET PO PRN (15:30)
[2019-08-24] MEDS ORDERED: ONDANSETRON HCL 4 MG/2 ML VIAL IVP PRN (15:30)
[2019-08-24] MEDS ORDERED: METOCLOPRAMIDE HCL 5 MG TABLET PO PRN (15:30)
[2019-08-24] MEDS ORDERED: ACETAMINOPHEN 325 MG TABLET PO PRN (15:30)
[2019-08-24] MEDS ORDERED: HEPARIN SODIUM,PORCINE 5,000 UNITS/ML VIAL SQ SCH (16:00)
[2019-08-24 16:07] VITALS: BP 141/90
[2019-08-24] MEDS: INSULIN LISPRO 100 UNITS/ML SQ PRN ×2 (17:12→21:19)
[2019-08-24] MEDS ORDERED: POTASSIUM CHLORIDE 20 MEQ ER TABLET PO ONE (17:15)
[2019-08-24 19:39] VITALS: BP 122/74
[2019-08-24] MEDS: METOPROLOL TARTRATE 25 MG TABLET PO SCH (20:28)
[2019-08-24] MEDS: DOCUSATE SODIUM 100 MG CAPSULE PO SCH (20:28)
[2019-08-24] MEDS: INSULIN GLARGINE,HUM.REC.ANLOG 100 UNITS/ML SQ SCH (21:18)
[2019-08-24 23:40] VITALS: BP 104/71
[2019-08-24] MEDS: HEPARIN SODIUM,PORCINE 5,000 UNITS/ML VIAL SQ SCH (23:50)
[2019-08-25 04:40] VITALS: BP 135/90
[2019-08-25] MEDS: INSULIN LISPRO 100 UNITS/ML SQ PRN ×4 (06:04→20:52)
[2019-08-25 06:40] LABS: BASOPHILS % (AUTO) 1.5 % (0.0-2.0); EOSINOPHILS % (AUTO) 3.5 % (1.0-6.0); HEMATOCRIT 30.7 % (36-46); HEMOGLOBIN 9.6 g/dL (12.0-16.0); LYMPHOCYTES # (AUTO) 2.4 K/uL (1.0-4.8); LYMPHOCYTES % (AUTO) 43.1 % (22.0-44.0); MEAN CORPUSCULAR HEMOGLOBIN 24.4 pg (26.0-34.0); MEAN CORPUSCULAR HGB CONC 31.2 G/dL (31.0-37.0); MEAN CORPUSCULAR VOLUME 78 fL (80-100); MONOCYTES # (AUTO) 0.6 K/uL (0.1-1.0); MONOCYTES % (AUTO) 11.1 % (2.0-9.0); NEUTROPHILS # (AUTO) 2.3 K/uL (1.8-7.7); NEUTROPHILS % (AUTO) 40.8 % (40.0-70.0); PLATELET COUNT (AUTO) 342 K/uL (150-450); RED BLOOD CELL COUNT(AUTO) 3.93 MIL/uL (4.00-5.20); RED CELL DISTRIBUTION WIDTH 17.5 % (11.5-14.5)
[2019-08-25 06:49] LABS: CALCIUM, TOTAL 8.6 mg/dL (8.8-10.5); CREATININE 1.4 mg/dL (0.60-1.30); POTASSIUM 3.5 mmol/L (3.5-5.1)
[2019-08-25 08:05] VITALS: BP 128/83
[2019-08-25 08:30] LABS: APPEARANCE,URINE CLOUDY (CLEAR); BILIRUBIN,URINE NEGATIVE (NEGATIVE); GLUCOSE, URINE (UA) NEGATIVE (NEGATIVE); KETONES,URINE NEGATIVE (NEGATIVE); LEUKOCYTE ESTERASE ,URINE TRACE (NEGATIVE); NITRATE,URINE NEGATIVE (NEGATIVE); OCCULT BLOOD,URINE NEGATIVE (NEGATIVE); PH,URINE 6.5 (5.0-8.0); PROTEIN,URINE NEGATIVE (NEGATIVE); UROBILINOGEN,URINE 0.2 mg/dL (<=1.0)
[2019-08-25 08:36] LABS: BACTERIA,URINE None Seen /HPF (None Seen); RBC,URINE 0-2 /HPF (0-2); WBC,URINE 0-2 /HPF (0-5); YEAST,URINE Many /HPF (None Seen)
[2019-08-25 08:37] LABS: SQUAMOUS EPITHELIAL CELL,UR Many /LPF (None Seen)
[2019-08-25] MEDS: PANTOPRAZOLE SODIUM 40 MG DR TABLET PO SCH (09:34)
[2019-08-25] MEDS: ATORVASTATIN CALCIUM 20 MG TABLET PO SCH (09:34)
[2019-08-25] MEDS: HEPARIN SODIUM,PORCINE 5,000 UNITS/ML VIAL SQ SCH ×2 (09:34→17:18)
[2019-08-25] MEDS: PREGABALIN 75 MG CAPSULE PO SCH (09:35)
[2019-08-25] MEDS: DOCUSATE SODIUM 100 MG CAPSULE PO SCH ×2 (09:35→20:45)
[2019-08-25] MEDS: METOPROLOL TARTRATE 25 MG TABLET PO SCH ×2 (09:38→20:45)
[2019-08-25] MEDS: INSULIN GLARGINE,HUM.REC.ANLOG 100 UNITS/ML SQ SCH ×2 (09:45→22:33)
[2019-08-25 11:39] VITALS: BP 128/86
[2019-08-25 12:19] VITALS: BP 113/83
[2019-08-25] MEDS ORDERED: VANCOMYCIN HCL 1 GM/D5% WATER 200 ML IV ONE (13:00)
[2019-08-25 15:47] VITALS: BP 126/88
[2019-08-25] MEDS: PIPERACILLIN/TAZO 3.375 GM/D5W 50 ML IV SCH ×2 (17:18→22:33)
[2019-08-25 19:45] VITALS: BP 110/72
[2019-08-25] MEDS: VANCOMYCIN HCL 1 GM/D5% WATER 200 ML IV SCH (20:47)
[2019-08-26 00:26] VITALS: BP 119/76
[2019-08-26] MEDS: HEPARIN SODIUM,PORCINE 5,000 UNITS/ML VIAL SQ SCH ×5 (00:48→22:43)
[2019-08-26 04:44] VITALS: BP 118/54
[2019-08-26] MEDS ORDERED: RINGERS SOLUTION,LACTATED 1,000 ML IV ONE ×2 (05:02→05:30)
[2019-08-26] MEDS: PIPERACILLIN/TAZO 3.375 GM/D5W 50 ML IV SCH ×4 (05:11→22:47)
[2019-08-26 06:28] LABS: BASOPHILS % (AUTO) 1.1 % (0.0-2.0); EOSINOPHILS % (AUTO) 4.2 % (1.0-6.0); HEMATOCRIT 29.3 % (36-46); HEMOGLOBIN 9.2 g/dL (12.0-16.0); LYMPHOCYTES % (AUTO) 37.3 % (22.0-44.0); MEAN CORPUSCULAR HEMOGLOBIN 24.7 pg (26.0-34.0); MEAN CORPUSCULAR HGB CONC 31.6 G/dL (31.0-37.0); MEAN CORPUSCULAR VOLUME 78 fL (80-100); MONOCYTES # (AUTO) 0.5 K/uL (0.1-1.0); MONOCYTES % (AUTO) 9.6 % (2.0-9.0); NEUTROPHILS # (AUTO) 2.5 K/uL (1.8-7.7); NEUTROPHILS % (AUTO) 47.8 % (40.0-70.0); PLATELET COUNT (AUTO) 267 K/uL (150-450); RED BLOOD CELL COUNT(AUTO) 3.75 MIL/uL (4.00-5.20); RED CELL DISTRIBUTION WIDTH 17.6 % (11.5-14.5)
[2019-08-26 06:50] LABS: ANION GAP 5 mmol/L (8-16); CALCIUM, TOTAL 8.4 mg/dL (8.8-10.5); CARBON DIOXIDE 30 mmol/L (22-29); CHLORIDE 97 mmol/L (98-107); GLOMERULAR FILTR. RATE CALC 46 mL/min (>60); GLUCOSE,RANDOM 272 mg/dL (70-110); HCG,QUANTITATIVE < 1 mIU/mL (0-6); POTASSIUM 3.5 mmol/L (3.5-5.1); SODIUM SERUM 132 mmol/L (136-145); UREA NITROGEN, BLOOD 9 mg/dL (7-18)
[2019-08-26] MEDS ORDERED: SODIUM CL IRRIG SOLN BAG 3,000 ML IRRIG ONE (06:55)
[2019-08-26] MEDS ORDERED: LIDOCAINE/PF 1% 30 ML VIAL ONE (06:55)
[2019-08-26] MEDS ORDERED: BUPIVACAINE HCL/PF 0.25% 30 ML VIAL ONE (06:55)
[2019-08-26] MEDS ORDERED: BACITRACIN 50,000 UNITS/VIAL ONE (06:56)
[2019-08-26] MEDS ORDERED: BUPIVACAINE HCL/PF 0.5% 30 ML VIAL ONE (06:58)
[2019-08-26] MEDS ORDERED: POVIDONE-IODINE 30 GM OINTMENT TP ONE (07:06)
[2019-08-26] MEDS ORDERED: MEPERIDINE-PF 25 MG/ML VIAL IVP PRN (07:45)
[2019-08-26] MEDS ORDERED: HYDROmorphone 2 MG/ML SYRINGE IVP PRN (07:45)
[2019-08-26] MEDS ORDERED: FentaNYL CITRATE-PF 100 MCG/2 ML VIAL IVP PRN (07:45)
[2019-08-26] MEDS: OXYGEN THERAPY IH SCH ×2 (08:00→20:00)
[2019-08-26 09:22] VITALS: BP 147/106
[2019-08-26] MEDS: ATORVASTATIN CALCIUM 20 MG TABLET PO SCH (09:22)
[2019-08-26] MEDS: PANTOPRAZOLE SODIUM 40 MG DR TABLET PO SCH (09:22)
[2019-08-26] MEDS: MULTIVITAMINS WITH MINERALS, THERAPEUTIC TABLET PO SCH (09:22)
[2019-08-26] MEDS: VANCOMYCIN HCL 1 GM/D5% WATER 200 ML IV SCH ×2 (09:22→20:38)
[2019-08-26] MEDS: DOCUSATE SODIUM 100 MG CAPSULE PO SCH ×2 (09:22→20:38)
[2019-08-26] MEDS: PREGABALIN 75 MG CAPSULE PO SCH (09:22)
[2019-08-26] MEDS: ASCORBIC ACID 500 MG TABLET PO SCH (09:23)
[2019-08-26] MEDS: METOPROLOL TARTRATE 25 MG TABLET PO SCH ×2 (09:23→21:00)
[2019-08-26] MEDS: INSULIN GLARGINE,HUM.REC.ANLOG 100 UNITS/ML SQ SCH ×2 (09:23→20:46)
[2019-08-26 11:18] VITALS: BP 143/88
[2019-08-26] MEDS: INSULIN LISPRO 100 UNITS/ML SQ PRN ×3 (11:25→20:48)
[2019-08-26] MEDS ORDERED: PROPOFOL 1% 20 ML VIAL IVP ONE (12:00)
[2019-08-26] MEDS ORDERED: FentaNYL CITRATE-PF 100 MCG/2 ML VIAL IVP ONE (12:00)
[2019-08-26] MEDS ORDERED: MIDAZOLAM HCL 2 MG/2 ML VIAL IVP ONE (12:00)
[2019-08-26 15:38] VITALS: BP 142/85
[2019-08-26 19:49] VITALS: BP 104/66
[2019-08-27] VITALS (7 sets, daily range): BP systolic 94–132; BP diastolic 54–84
[2019-08-27] MEDS: PIPERACILLIN/TAZO 3.375 GM/D5W 50 ML IV SCH ×4 (03:57→22:44)
[2019-08-27] MEDS: INSULIN LISPRO 100 UNITS/ML SQ PRN ×4 (05:42→20:43)
[2019-08-27 07:15] LABS: BASOPHILS % (AUTO) 1.8 % (0.0-2.0); EOSINOPHILS % (AUTO) 4.1 % (1.0-6.0); HEMATOCRIT 26.5 % (36-46); HEMOGLOBIN 8.6 g/dL (12.0-16.0); LYMPHOCYTES # (AUTO) 1.6 K/uL (1.0-4.8); LYMPHOCYTES % (AUTO) 25.8 % (22.0-44.0); MEAN CORPUSCULAR HEMOGLOBIN 25.7 pg (26.0-34.0); MEAN CORPUSCULAR HGB CONC 32.4 G/dL (31.0-37.0); MEAN CORPUSCULAR VOLUME 79 fL (80-100); MONOCYTES # (AUTO) 0.7 K/uL (0.1-1.0); MONOCYTES % (AUTO) 10.9 % (2.0-9.0); NEUTROPHILS # (AUTO) 3.5 K/uL (1.8-7.7); NEUTROPHILS % (AUTO) 57.4 % (40.0-70.0); PLATELET COUNT (AUTO) 286 K/uL (150-450); RED BLOOD CELL COUNT(AUTO) 3.34 MIL/uL (4.00-5.20); RED CELL DISTRIBUTION WIDTH 17.8 % (11.5-14.5)
[2019-08-27 07:42] LABS: CALCIUM, TOTAL 8.1 mg/dL (8.8-10.5); CREATININE 1.61 mg/dL (0.60-1.30); POTASSIUM 3.6 mmol/L (3.5-5.1); VANCOMYCIN,RANDOM 32.2 mcg/mL (25.0-50.0)
[2019-08-27] MEDS: OXYGEN THERAPY IH SCH ×2 (08:00→20:00)
[2019-08-27] MEDS: HEPARIN SODIUM,PORCINE 5,000 UNITS/ML VIAL SQ SCH ×3 (08:00→21:39)
[2019-08-27] MEDS: ASCORBIC ACID 500 MG TABLET PO SCH (08:16)
[2019-08-27] MEDS: DOCUSATE SODIUM 100 MG CAPSULE PO SCH ×2 (08:16→20:40)
[2019-08-27] MEDS: PREGABALIN 75 MG CAPSULE PO SCH (08:16)
[2019-08-27] MEDS: ATORVASTATIN CALCIUM 20 MG TABLET PO SCH (08:16)
[2019-08-27] MEDS: METOPROLOL TARTRATE 25 MG TABLET PO SCH ×2 (08:16→20:41)
[2019-08-27] MEDS: PANTOPRAZOLE SODIUM 40 MG DR TABLET PO SCH (08:16)
[2019-08-27] MEDS: MULTIVITAMINS WITH MINERALS, THERAPEUTIC TABLET PO SCH (08:16)
[2019-08-27] MEDS: INSULIN GLARGINE,HUM.REC.ANLOG 100 UNITS/ML SQ SCH ×2 (08:20→20:41)
[2019-08-27] MEDS: VANCOMYCIN HCL 750 MG in DEXTROSE 5%-WATER 250 ML IV SCH (19:42)
[2019-08-27] MEDS ORDERED: SODIUM CHLORIDE 0.9% 500 ML IV ONE (20:58)
[2019-08-28] MEDS: PIPERACILLIN/TAZO 3.375 GM/D5W 50 ML IV SCH ×4 (04:29→22:11)
[2019-08-28 04:35] VITALS: BP 117/71
[2019-08-28] MEDS: INSULIN LISPRO 100 UNITS/ML SQ PRN ×4 (05:34→20:59)
[2019-08-28 06:51] LABS: CALCIUM, TOTAL 8.4 mg/dL (8.8-10.5); CREATININE 1.65 mg/dL (0.60-1.30); POTASSIUM 4.4 mmol/L (3.5-5.1)
[2019-08-28 07:10] VITALS: BP 124/83
[2019-08-28] MEDS: HEPARIN SODIUM,PORCINE 5,000 UNITS/ML VIAL SQ SCH ×3 (08:00→23:09)
[2019-08-28] MEDS: OXYGEN THERAPY IH SCH ×2 (08:00→20:00)
[2019-08-28] MEDS: ATORVASTATIN CALCIUM 20 MG TABLET PO SCH (08:14)
[2019-08-28] MEDS: DOCUSATE SODIUM 100 MG CAPSULE PO SCH ×2 (08:14→20:28)
[2019-08-28] MEDS: PANTOPRAZOLE SODIUM 40 MG DR TABLET PO SCH (08:14)
[2019-08-28] MEDS: PREGABALIN 75 MG CAPSULE PO SCH (08:14)
[2019-08-28] MEDS: ASCORBIC ACID 500 MG TABLET PO SCH (08:14)
[2019-08-28] MEDS: METOPROLOL TARTRATE 25 MG TABLET PO SCH ×2 (08:19→20:29)
[2019-08-28] MEDS: VANCOMYCIN HCL 750 MG in DEXTROSE 5%-WATER 250 ML IV SCH ×2 (08:19→20:28)
[2019-08-28] MEDS: MULTIVITAMINS WITH MINERALS, THERAPEUTIC TABLET PO SCH (08:25)
[2019-08-28] MEDS: INSULIN GLARGINE,HUM.REC.ANLOG 100 UNITS/ML SQ SCH ×2 (08:30→20:58)
[2019-08-28 11:15] VITALS: BP 108/77
[2019-08-28 15:10] VITALS: BP 108/73
[2019-08-28 19:33] VITALS: BP 128/65
[2019-08-28 20:49] LABS: GLUCOMETER DEV NAME(LOC) 4E.2; GLUCOSE,POINT OF CARE 223 MG/DL (70-110)
[2019-08-28 20:49] LABS: GLUCOMETER DEV NAME(LOC) 4E.2; GLUCOSE,POINT OF CARE 253 MG/DL (70-110)
[2019-08-28 20:49] LABS: GLUCOMETER DEV NAME(LOC) 4E.2; GLUCOSE,POINT OF CARE 239 MG/DL (70-110)
[2019-08-28 20:49] LABS: GLUCOMETER DEV NAME(LOC) 4E.2; GLUCOSE,POINT OF CARE 253 MG/DL (70-110)
[2019-08-28 20:49] LABS: GLUCOMETER DEV NAME(LOC) 4E.2; GLUCOSE,POINT OF CARE 221 MG/DL (70-110)
[2019-08-28 20:50] LABS: GLUCOMETER DEV NAME(LOC) 4E.2; GLUCOSE,POINT OF CARE 380 MG/DL (70-110)
[2019-08-28 20:50] LABS: GLUCOMETER DEV NAME(LOC) 4E.2; GLUCOSE,POINT OF CARE 213 MG/DL (70-110)
[2019-08-28 20:50] LABS: GLUCOMETER DEV NAME(LOC) 4E.2; GLUCOSE,POINT OF CARE 239 MG/DL (70-110)
[2019-08-28 20:50] LABS: GLUCOMETER DEV NAME(LOC) 4E.2; GLUCOSE,POINT OF CARE 237 MG/DL (70-110)
[2019-08-28 20:50] LABS: GLUCOMETER DEV NAME(LOC) 4E.2; GLUCOSE,POINT OF CARE 212 MG/DL (70-110)
[2019-08-28 20:51] LABS: GLUCOMETER DEV NAME(LOC) 4E.2; GLUCOSE,POINT OF CARE 233 MG/DL (70-110)
[2019-08-28 20:51] LABS: GLUCOMETER DEV NAME(LOC) 4E.2; GLUCOSE,POINT OF CARE 230 MG/DL (70-110)
[2019-08-28 20:51] LABS: GLUCOMETER DEV NAME(LOC) 4E.2; GLUCOSE,POINT OF CARE 385 MG/DL (70-110)
[2019-08-28 20:51] LABS: GLUCOMETER DEV NAME(LOC) 4E.2; GLUCOSE,POINT OF CARE 169 MG/DL (70-110)
[2019-08-28 20:51] LABS: GLUCOMETER DEV NAME(LOC) 4E.2; GLUCOSE,POINT OF CARE 256 MG/DL (70-110)
[2019-08-28 20:52] LABS: GLUCOMETER DEV NAME(LOC) 4E.2; GLUCOSE,POINT OF CARE 223 MG/DL (70-110)
[2019-08-28 20:52] LABS: GLUCOMETER DEV NAME(LOC) 4E.2; GLUCOSE,POINT OF CARE 192 MG/DL (70-110)
[2019-08-29 00:07] VITALS: BP 102/58
[2019-08-29 03:50] VITALS: BP 117/69
[2019-08-29] MEDS: PIPERACILLIN/TAZO 3.375 GM/D5W 50 ML IV SCH ×2 (04:00→10:16)
[2019-08-29] MEDS: INSULIN LISPRO 100 UNITS/ML SQ PRN ×4 (05:42→21:05)
[2019-08-29 06:01] LABS: CALCIUM, TOTAL 7.9 mg/dL (8.8-10.5); CREATININE 1.88 mg/dL (0.60-1.30); POTASSIUM 4.1 mmol/L (3.5-5.1); VANCOMYCIN,RANDOM 26.7 mcg/mL (25.0-50.0)
[2019-08-29 07:32] VITALS: BP 127/83
[2019-08-29] MEDS: OXYGEN THERAPY IH SCH (07:48)
[2019-08-29] MEDS: HEPARIN SODIUM,PORCINE 5,000 UNITS/ML VIAL SQ SCH ×2 (08:00→15:41)
[2019-08-29] MEDS: ASCORBIC ACID 500 MG TABLET PO SCH (08:38)
[2019-08-29] MEDS: VANCOMYCIN HCL 750 MG in DEXTROSE 5%-WATER 250 ML IV SCH ×2 (08:38→21:00)
[2019-08-29] MEDS: MULTIVITAMINS WITH MINERALS, THERAPEUTIC TABLET PO SCH (08:41)
[2019-08-29] MEDS: PREGABALIN 75 MG CAPSULE PO SCH (08:41)
[2019-08-29] MEDS: DOCUSATE SODIUM 100 MG CAPSULE PO SCH ×2 (08:41→21:00)
[2019-08-29] MEDS: PANTOPRAZOLE SODIUM 40 MG DR TABLET PO SCH (08:41)
[2019-08-29] MEDS: ATORVASTATIN CALCIUM 20 MG TABLET PO SCH (08:41)
[2019-08-29] MEDS: METOPROLOL TARTRATE 25 MG TABLET PO SCH ×2 (08:41→21:01)
[2019-08-29] MEDS: INSULIN GLARGINE,HUM.REC.ANLOG 100 UNITS/ML SQ SCH ×2 (08:42→21:07)
[2019-08-29 20:00] VITALS: BP 126/73
[2019-08-29 23:18] VITALS: BP 124/87
[2019-08-30 04:00] VITALS: BP 134/92
[2019-08-30] MEDS: HEPARIN SODIUM,PORCINE 5,000 UNITS/ML VIAL SQ SCH ×3 (04:24→14:41)
[2019-08-30] MEDS: INSULIN LISPRO 100 UNITS/ML SQ PRN ×2 (06:14→11:51)
[2019-08-30 06:33] LABS: CALCIUM, TOTAL 8.1 mg/dL (8.8-10.5); CREATININE 1.69 mg/dL (0.60-1.30); POTASSIUM 4.5 mmol/L (3.5-5.1); VANCOMYCIN,RANDOM 23.6 mcg/mL (25.0-50.0)
[2019-08-30 07:38] VITALS: BP 138/85
[2019-08-30] MEDS: OXYGEN THERAPY IH SCH (08:00)
[2019-08-30] MEDS: ATORVASTATIN CALCIUM 20 MG TABLET PO SCH (08:20)
[2019-08-30] MEDS: VANCOMYCIN HCL 750 MG in DEXTROSE 5%-WATER 250 ML IV SCH (08:20)
[2019-08-30] MEDS: ASCORBIC ACID 500 MG TABLET PO SCH (08:20)
[2019-08-30] MEDS: PANTOPRAZOLE SODIUM 40 MG DR TABLET PO SCH (08:20)
[2019-08-30] MEDS: PREGABALIN 75 MG CAPSULE PO SCH (08:20)
[2019-08-30] MEDS: METOPROLOL TARTRATE 25 MG TABLET PO SCH (08:20)
[2019-08-30] MEDS: MULTIVITAMINS WITH MINERALS, THERAPEUTIC TABLET PO SCH (08:20)
[2019-08-30] MEDS: INSULIN GLARGINE,HUM.REC.ANLOG 100 UNITS/ML SQ SCH (08:21)
[2019-08-30] MEDS: DOCUSATE SODIUM 100 MG CAPSULE PO SCH (09:00)
[2019-08-30 11:43] VITALS: BP 133/84
[2019-09-02 13:09] LABS: GLUCOMETER DEV NAME(LOC) 6N.1; GLUCOSE,POINT OF CARE 209 MG/DL (70-110)
[2019-09-02 13:10] LABS: GLUCOMETER DEV NAME(LOC) 4E.2; GLUCOSE,POINT OF CARE 259 MG/DL (70-110)
[2019-09-02 13:10] LABS: GLUCOMETER DEV NAME(LOC) 4E.2; GLUCOSE,POINT OF CARE 291 MG/DL (70-110)
[2019-09-02 13:10] LABS: GLUCOMETER DEV NAME(LOC) 4E.2; GLUCOSE,POINT OF CARE 260 MG/DL (70-110)
[2019-09-02 13:10] LABS: GLUCOMETER DEV NAME(LOC) 4E.2; GLUCOSE,POINT OF CARE 302 MG/DL (70-110)
[2019-09-02 13:10] LABS: GLUCOMETER DEV NAME(LOC) 4E.2; GLUCOSE,POINT OF CARE 263 MG/DL (70-110)
[2019-09-02 13:11] LABS: GLUCOMETER DEV NAME(LOC) 4E.2; GLUCOSE,POINT OF CARE 246 MG/DL (70-110)
== END 2019-08-30 15:50 | disposition home health service (06) | DRG 629 ==
LOC: EMS 10:38 → 4E 15:22
PROVIDERS: ADMIT Internal Medicine; ATTEND Internal Medicine
PROC: 0QTP0ZZ Resection of Left Metatarsal, Open Approach (ICD-10-PCS; 2019-08-26)
PROC: 0QBR0ZZ Excision of Left Toe Phalanx, Open Approach (ICD-10-PCS; principal; 2019-08-26 07:30)
DX: E11.69 Type 2 diabetes mellitus with other specified complication (principal); M86.172 Other acute osteomyelitis, left ankle and foot; E11.621 Type 2 diabetes mellitus with foot ulcer; I10 Essential (primary) hypertension; E78.5 Hyperlipidemia, unspecified; B95.61 Methicillin susceptible Staphylococcus aureus infection as the cause of diseases classified elsewhere; K21.9 Gastro-esophageal reflux disease without esophagitis; E87.6 Hypokalemia; E11.43 Type 2 diabetes mellitus with diabetic autonomic (poly)neuropathy; E11.40 Type 2 diabetes mellitus with diabetic neuropathy, unspecified; K31.84 Gastroparesis; Z88.8 Allergy status to other drugs, medicaments and biological substances; E11.65 Type 2 diabetes mellitus with hyperglycemia; L97.529 Non-pressure chronic ulcer of other part of left foot with unspecified severity; Z89.412 Acquired absence of left great toe; Z91.19 Patient's noncompliance with other medical treatment and regimen; Z79.4 Long term (current) use of insulin; Z90.710 Acquired absence of both cervix and uterus
CPT/HCPCS: 73718; 83036; 85651; 86140; 87040; 87070; 87081; 87205; 88305; 88311; 96365; G0378; J1644; J1815; J2250; J2405; J2543; J2704; J3010; J3370; J3490; J7030; J7040; J7060; J7120

== ENCOUNTER 2019-10-12 10:54 | Emergency (ER) | payer OTHER ==
[~2019-10-12] VITALS: Ht 175.3 cm; Wt 93.6 kg
[~2019-10-12 10:54] MED LIST changes: +ATOR20TA65 PO; -INSNOV SQ; +INSU100V SQ; +LISI10TA7 PO; -METO5TAB95 PO; +PREG75CA75 PO
[2019-10-12 11:11] LABS: GLUCOSE,POINT OF CARE 289 MG/DL (70-110)
[2019-10-12 16:00] VITALS: BP 140/89
== END 2019-10-12 16:50 | disposition home or self-care (01) ==
LOC: EMS 10:55
DX: T82.594A Other mechanical complication of infusion catheter, initial encounter (principal); E11.9 Type 2 diabetes mellitus without complications; Z95.9 Presence of cardiac and vascular implant and graft, unspecified; Z90.710 Acquired absence of both cervix and uterus; Z88.5 Allergy status to narcotic agent; Z88.8 Allergy status to other drugs, medicaments and biological substances; Z79.4 Long term (current) use of insulin; Z79.899 Other long term (current) drug therapy

== ENCOUNTER 2021-02-11 13:17 | Emergency (ER) | payer OTHER ==
[~2021-02-11] VITALS: Ht 175.3 cm; Wt 107.7 kg
[~2021-02-11 13:17] MED LIST changes: +LISI10TA24 PO; -LISI10TA7 PO
[2021-02-11] MEDS ORDERED: SODIUM CHLORIDE 0.9% 1,000 ML IV ONE (13:45)
[2021-02-11] MEDS ORDERED: METOCLOPRAMIDE HCL 5 MG/ML 2 ML VIAL IVP ONE (13:45)
[2021-02-11] MEDS ORDERED: DiphenhydrAMINE HCL 50 MG/ML VIAL IVP ONE (13:45)
[2021-02-11 13:58] LABS: BASOPHILS % (AUTO) 1.2 % (0.0-2.0); EOSINOPHILS % (AUTO) 0.4 % (1.0-6.0); HEMOGLOBIN 8.9 g/dL (12.0-16.0); LYMPHOCYTES # (AUTO) 1.1 K/uL (1.0-4.8); MEAN CORPUSCULAR HEMOGLOBIN 24.4 pg (26.0-34.0); MEAN CORPUSCULAR HGB CONC 30.6 G/dL (31.0-37.0); MEAN CORPUSCULAR VOLUME 80 fL (80-100); MONOCYTES # (AUTO) 0.7 K/uL (0.1-1.0); NEUTROPHILS # (AUTO) 8.3 K/uL (1.8-7.7); NEUTROPHILS % (AUTO) 80.4 % (40.0-70.0); PLATELET COUNT (AUTO) 281 K/uL (150-450); RED BLOOD CELL COUNT(AUTO) 3.63 MIL/uL (4.00-5.20)
[2021-02-11 14:11] LABS: ANION GAP 9 mmol/L (8-16); CALCIUM, TOTAL 7.7 mg/dL (8.8-10.5); CARBON DIOXIDE 24 mmol/L (22-29); CHLORIDE 103 mmol/L (98-107); CREATININE 1.95 mg/dL (0.60-1.30); GLOMERULAR FILTR. RATE CALC 34 mL/min (>60); GLUCOSE,RANDOM 259 mg/dL (70-110); POTASSIUM 3.9 mmol/L (3.5-5.1); SODIUM SERUM 136 mmol/L (136-145); UREA NITROGEN, BLOOD 13 mg/dL (7-18)
[2021-02-11 14:37] LABS: ALANINE AMINOTRANSFERASE 14 U/L (12-78); ALBUMIN 2.6 g/dL (3.4-5.0); ALKALINE PHOSPHATASE 153 U/L (46-116); ASPARTATE AMINOTRANSFERASE 16 U/L (15-37); BILIRUBIN,TOTAL 0.4 mg/dL (0.1-1.0); CREATINE KINASE, TOTAL ONLY 134 U/L (26-192); HCG,QUANTITATIVE < 1 mIU/mL (0-6); LIPASE 20 U/L (73-393); TOTAL PROTEIN, SERUM 7.4 g/dL (6.4-8.2)
[2021-02-11] MEDS ORDERED: FAMOTIDINE 10 MG/ML 2 ML VIAL IVP ONE (15:00)
[2021-02-11] MEDS ORDERED: PB/HYOSCY/ATR/SCOP/LIDO/MAALOX 55 ML BOTTLE PO ONE (15:00)
[2021-02-11 15:17] LABS: APPEARANCE,URINE CLOUDY (CLEAR); BILIRUBIN,URINE NEGATIVE (NEGATIVE); GLUCOSE, URINE (UA) NEGATIVE (NEGATIVE); KETONES,URINE TRACE mg/dL (NEGATIVE); LEUKOCYTE ESTERASE ,URINE NEGATIVE (NEGATIVE); NITRATE,URINE NEGATIVE (NEGATIVE); OCCULT BLOOD,URINE MODERATE (NEGATIVE); PROTEIN,URINE SEE CONFIRM (NEGATIVE); UROBILINOGEN,URINE 0.2 mg/dL (<=1.0)
[2021-02-11 15:24] LABS: SULFOSALICYLIC ACID,URINE 2+ (Negative)
[2021-02-11 15:25] LABS: BACTERIA,URINE Rare /HPF (None Seen); SQUAMOUS EPITHELIAL CELL,UR Few /LPF (None Seen); YEAST,URINE Many /HPF (None Seen)
[2021-02-11] MEDS ORDERED: FLUCONAZOLE 200 MG TABLET PO ONE (15:30)
[2021-02-11] MEDS ORDERED: MAGNESIUM SULFATE 2 GM/WATER 50 ML IV ONE (15:45)
[2021-02-11] MEDS ORDERED: KETOROLAC TROMETHAMINE 30 MG/ML VIAL IVP ONE (18:30)
[2021-02-11 18:40] LABS: AMPHET/METH SCREEN,URINE NEGATIVE (NEGATIVE); BARBITURATE SCREEN, URINE NEGATIVE (NEGATIVE); BENZODIAZEPINES SCREEN,URINE NEGATIVE (NEGATIVE); CANNABINOID SCREEN,URINE NEGATIVE (NEGATIVE); COCAINE SCREEN,URINE NEGATIVE (NEGATIVE); METHADONE SCREEN, URINE NEGATIVE (NEGATIVE); OPIATE SCREEN,URINE POSITIVE (NEGATIVE); PHENCYCLIDINE SCREEN,URINE NEGATIVE (NEGATIVE)
[2021-02-11 19:13] VITALS: BP 135/70
== END 2021-02-11 19:23 | disposition home or self-care (01) ==
LOC: EMS 13:20
DX: E83.42 Hypomagnesemia (principal); B37.49 Other urogenital candidiasis; E83.51 Hypocalcemia; E11.65 Type 2 diabetes mellitus with hyperglycemia; R11.2 Nausea with vomiting, unspecified; Z88.5 Allergy status to narcotic agent; Z88.8 Allergy status to other drugs, medicaments and biological substances; Z79.899 Other long term (current) drug therapy; Z79.4 Long term (current) use of insulin
CPT/HCPCS: 36415; 76705; 80053; 80307; 81001; 82550; 82962; 83690; 83735; 84702; 85025; 87086; 96361; 96365; 96366; 96375; 99284; J1200; J1885; J2765; J3475; J3490; J7030; 81002

== ENCOUNTER 2021-08-16 07:56 | Emergency (ER) | payer OTHER ==
[~2021-08-16] VITALS: Ht 175.3 cm; Wt 100.0 kg
[2021-08-16] MEDS ORDERED: MAG HYDROX/AL HYDROX/SIMETH 30 ML SUSP UDCUP PO ONE (08:15)
[2021-08-16] MEDS ORDERED: FAMOTIDINE 10 MG/ML 2 ML VIAL IVP ONE (08:15)
[2021-08-16] MEDS ORDERED: KETOROLAC TROMETHAMINE 30 MG/ML VIAL IVP ONE (08:15)
[2021-08-16] MEDS ORDERED: ONDANSETRON HCL 4 MG/2 ML VIAL IVP ONE (08:15)
[2021-08-16] MEDS ORDERED: SODIUM CHLORIDE 0.9% 1,000 ML IV ONE (08:15)
[2021-08-16 08:32] LABS: EOSINOPHILS % (AUTO) 0.1 % (1.0-6.0); HEMOGLOBIN 10.4 g/dL (12.0-16.0); LYMPHOCYTES % (AUTO) 9.6 % (22.0-44.0); MEAN CORPUSCULAR HEMOGLOBIN 25.1 pg (26.0-34.0); MEAN CORPUSCULAR HGB CONC 30.6 G/dL (31.0-37.0); MEAN CORPUSCULAR VOLUME 82 fL (80-100); MONOCYTES # (AUTO) 0.7 K/uL (0.1-1.0); MONOCYTES % (AUTO) 6.6 % (2.0-9.0); NEUTROPHILS # (AUTO) 8.5 K/uL (1.8-7.7); NEUTROPHILS % (AUTO) 82.7 % (40.0-70.0); PLATELET COUNT (AUTO) 343 K/uL (150-450); RED BLOOD CELL COUNT(AUTO) 4.14 MIL/uL (4.00-5.20); RED CELL DISTRIBUTION WIDTH 16.5 % (11.5-14.5)
[2021-08-16 08:44] LABS: INR 1.1 (0.9-1.1); PROTHROMBIN TIME 11.3 SEC (9.4-11.6)
[2021-08-16 08:46] LABS: ACETONE,BLOOD NEGATIVE (NEGATIVE)
[2021-08-16 08:54] LABS: B-TYPE NATRIURETIC PEPTIDE 244 pg/mL (0-100)
[2021-08-16 09:04] LABS: ALANINE AMINOTRANSFERASE 21 U/L (12-78); ALBUMIN 3.2 g/dL (3.4-5.0); ALKALINE PHOSPHATASE 197 U/L (46-116); ANION GAP 13 mmol/L (8-16); ASPARTATE AMINOTRANSFERASE 11 U/L (15-37); BILIRUBIN,TOTAL 0.3 mg/dL (0.1-1.0); CALCIUM, TOTAL 8.4 mg/dL (8.8-10.5); CARBON DIOXIDE 20 mmol/L (22-29); CHLORIDE 109 mmol/L (98-107); CREATINE KINASE, TOTAL ONLY 135 U/L (26-192); CREATININE 2.83 mg/dL (0.60-1.30); GLOMERULAR FILTR. RATE CALC 22 mL/min (>60); POTASSIUM 4.3 mmol/L (3.5-5.1); SODIUM SERUM 142 mmol/L (136-145); TOTAL PROTEIN, SERUM 7.9 g/dL (6.4-8.2); UREA NITROGEN, BLOOD 41 mg/dL (7-18)
[2021-08-16 09:05] LABS: GLUCOSE,RANDOM 444 mg/dL (70-110)
[2021-08-16] MEDS ORDERED: MAGNESIUM SULFATE 1 GM in DEXTROSE 5%-WATER 50 ML IV ONE (09:15)
[2021-08-16] MEDS ORDERED: INSULIN REGULAR, HUMAN 100 UNITS/ML IVP ONE (09:15)
[2021-08-16 09:22] LABS: HCG,QUANTITATIVE < 1 mIU/mL (0-6)
[2021-08-16] MEDS ORDERED: METOCLOPRAMIDE HCL 5 MG/ML 2 ML VIAL IVP ONE (10:30)
[2021-08-16] MEDS ORDERED: DiphenhydrAMINE HCL 50 MG/ML VIAL IVP ONE (10:30)
[2021-08-16 12:26] LABS: GLUCOSE,POINT OF CARE 332 MG/DL (70-110)
[2021-08-16] MEDS ORDERED: ONDA-104 PO (12:34)
[2021-08-16 13:53] VITALS: BP 130/78
== END 2021-08-16 13:52 | disposition home or self-care (01) ==
LOC: EMS 08:00
DX: E11.65 Type 2 diabetes mellitus with hyperglycemia (principal); Z90.710 Acquired absence of both cervix and uterus; Z88.6 Allergy status to analgesic agent; Z88.8 Allergy status to other drugs, medicaments and biological substances; Z79.899 Other long term (current) drug therapy; Z79.4 Long term (current) use of insulin
CPT/HCPCS: 71045; 80053; 82009; 82550; 82962; 83735; 83880; 84100; 84484; 84702; 85025; 85610; 85730; 93005; 96361; 96365; 96366; 96375; 99285; J1200; J1815; J1885; J2405; J2765; J3475; J3490; J7030; J7060; 36415-L1; 36415-TC

== ENCOUNTER 2021-11-24 08:38 | Emergency (ER) | payer OTHER ==
[~2021-11-24] VITALS: Ht 175.3 cm; Wt 113.6 kg
[~2021-11-24 08:38] MED LIST changes: +ONDA-104 PO
[2021-11-24] MEDS ORDERED: IBUP-2070 PO (10:17)
[2021-11-24] MEDS ORDERED: CYCL-448 PO (10:17)
[2021-11-24 10:30] VITALS: BP 145/96
== END 2021-11-24 10:36 | disposition home or self-care (01) ==
LOC: EMS 08:38
DX: M54.41 Lumbago with sciatica, right side (principal); G89.29 Other chronic pain; R60.0 Localized edema; E11.9 Type 2 diabetes mellitus without complications; Z79.4 Long term (current) use of insulin; Z88.5 Allergy status to narcotic agent; Z88.8 Allergy status to other drugs, medicaments and biological substances; V49.9XXA Car occupant (driver) (passenger) injured in unspecified traffic accident, initial encounter; Y93.89 Activity, other specified; Y92.89 Other specified places as the place of occurrence of the external cause; Y99.8 Other external cause status
CPT/HCPCS: 82962; 99283